=== PATIENT | male | born 1965 | race Caucasian/White ===

== ENCOUNTER 2018-02-15 20:56 | Emergency (ER) | payer OTHER, SELFPAY ==
--- NOTE | 2018-02-15 21:03 | ED.EXTPRO ---
HPI - Extremity Problem General Stated complaint: [place] FOOT INFECTION Time Seen by Provider: 02/15/18 21:03 Related Data Home Medications Medication Instructions Recorded Confirmed Bupropion Hydrochloride 150 mg PO * DOSE/FREQUENCY #0 08/02/08 (WELLBUTRIN) Cyclobenzaprine Hydrochloride mg PO Q DAY #0 08/02/08 (CYCLOBENZAPRINE HCL) FENTANYL (Fentanyl) 0 TOPICAL Q72H #0 08/02/08 GABAPENTIN (Neurontin) 600 mg PO BID #0 08/02/08 Oxycodone/Acetaminophen (Percocet 1 tab PO #0 08/02/08 5-325 MG Tablet) [CYMBALTA] 150 #0 08/02/08 Discharge Plan Departure Prescriptions: No Action Bupropion Hydrochloride (WELLBUTRIN) 150 mg PO * DOSE/FREQUENCY Qty: 0 RF: 0 Cyclobenzaprine Hydrochloride (CYCLOBENZAPRINE HCL) PO Q DAY Qty: 0 RF: 0 Oxycodone/Acetaminophen (Percocet 5-325 MG Tablet) 1 tab PO Qty: 0 RF: 0 [CYMBALTA] 150 Qty: 0 RF: 0 FENTANYL (Fentanyl) Topical Q72H Qty: 0 RF: 0 GABAPENTIN (Neurontin) 600 mg PO BID Qty: 0 RF: 0
[2018-02-15 21:06] VITALS: BP 151/90; PULSE 79; RESP 18; TEMP 36.9; O2SAT 100; BMI 34.7
--- NOTE | 2018-02-15 21:42 | ED.LOWEXIN ---
HPI - Extremity Injury (Lower) General Chief Complaint: Extremity Injury, Lower Stated Complaint: STATES FOOT INFECTION Time Seen by Provider: 02/15/18 21:03 Source: patient Mode of arrival: ambulatory Limitations: no limitations History of Present Illness HPI Narrative: Patient states that about 2 weeks ago he stepped on a short nail with his bare foot. He states that the area was a little sore, but that he did not notice major pain or redness or swelling until about a week and a half later. Patient states that he saw a his doctor and was placed on antibiotics (Augmentin) but that after a few days things do not seem to be getting better. His abx were changed to Cipro yesterday. Patient states that his ft and lower leg were purple while he was standing up earlier today, but as soon as he laid down, his foot went back to its previous color. This is what prompted his visit today. No fevers or other injuries. Patient does not feel ill. He has had minimal oozing from the wound. MD complaint: foot injury Onset (ago): week(s) (2) Injury: Left: foot Type of Injury: puncture wound Place: home Severity: mild Exacerbating factors: weight bearing Context: stepped on nail Associated symptoms: swelling Other symptoms: none Related Data Home Medications Medication Instructions Recorded Confirmed Bupropion Hydrochloride 150 mg PO * [place] DOSE/FREQUENCY #0 08/02/08 (WELLBUTRIN) Cyclobenzaprine Hydrochloride mg PO Q DAY #0 08/02/08 (CYCLOBENZAPRINE HCL) FENTANYL (Fentanyl) 0 TOPICAL Q72H #0 08/02/08 GABAPENTIN (Neurontin) 600 mg PO BID #0 08/02/08 Oxycodone/Acetaminophen (Percocet 1 tab PO #0 08/02/08 5-325 MG Tablet) [CYMBALTA] 150 #0 08/02/08 Previous Rx's Medication Instructions Recorded sulfamethoxazole-trimethoprim 1 tab PO BID #14 tab 02/16/18 Allergies Allergy/AdvReac Type Severity Reaction Status Date / Time No Known Drug Allergies Allergy Verified 02/15/18 22:46 Review of Systems Review of Systems All systems reviewed & are unremarkable except as noted in HPI and below Constitutional Denies chills, Denies fever(s), Denies lethargy and Denies weakness Eyes Denies change in vision, Denies eye discharge, Denies irritation and Denies loss of vision ENT Ears, Nose, Mouth, and Throat: Denies throat swelling Cardiovascular Denies chest pain, Denies irregular heart rhythm, Denies lightheadedness, Denies palpitations and Denies orthopnea Respiratory Denies wheezing Gastrointestinal Gastrointestinal: Denies abdominal pain, Denies change in bowel habits, Denies diarrhea, Denies nausea and Denies vomiting Musculoskeletal Denies back pain, Denies muscle weakness, Denies numbness and Denies tingling Integumentary/Breasts Denies pruritus, Denies erythema, Denies rash and Denies wounds Neurologic Denies confusion, Denies loss of vision, Denies numbness, Denies tingling and Denies weakness Psychiatric Denies anxiety, Denies confusion, Denies depression, Denies homicidal ideation and Denies suicidal ideation Endocrine Denies palpitations Hematologic/Lymphatic Denies easy bruising Allergic/Immunologic Denies urticaria, Denies throat swelling and Denies wheezing PFSH Social History Smoking Status: Never smoker Exam Initial Vital Signs Initial Vital Signs: Vital Signs Temperature 98.5 F 02/15/18 21:06 Pulse Rate 79 02/15/18 21:06 Respiratory Rate 18 02/15/18 21:06 Blood Pressure 151/90 H 02/15/18 21:06 Pulse Oximetry 100 02/15/18 21:06 Const General: cooperative and well developed Nutritional Appearance: well nourished Orientation: alert, awake, oriented x3 and not confused [facility] Head: normocephalic and atraumatic Nose: external nose normal and No nasal discharge Mouth: moist mucous membranes Eyes General: appearance normal, both eyes and all related structures Eyelids: eyelids normal Conjunctivae: conjunctivae normal Sclera: sclerae normal Pupils: PERRL EOM: EOM intact bilaterally Neck Neck: normal visual inspection, trachea midline, No lymphadenopathy, No midline deformity and No JVD Lymphatic: No lymphedema Chest Chest: normal inspection of the chest Resp Effort & Inspection: normal respiratory effort, able to speak in complete sentences, no respiratory distress and no use of accessory muscles Auscultation: clear to auscultation bilaterally, no rales, no rhonchi and no wheezes Cardio Rate: regular rate Rhythm: regular rhythm Heart Sounds: no click, no gallops, no murmurs and no rubs Pulses: normal peripheral pulses GI Inspection: non-distended Palpation: soft, no hepatosplenomegaly, No guarding, No pulsatile mass and No tender Auscultation: normal bowel sounds Back/Spine/Pelvis Back: No CVA tenderness Cervical Spine: cervical ROM normal and No pain with cervical ROM Thoracic/Lumbar Spine: thoracic and lumbar spine normal to inspection Skin General: no rashes or lesions noted, No jaundice and No petechiae Neuro General: alert, oriented x3, gait normal and no focal motor deficits Speech: speech normal Extrem General: full ROM, no pedal edema and no calf tenderness Left lower extremity: foot (Patient has a 3 cm diameter area of erythema and induration, with moderate edema on the plantar aspect of his left foot, centrally located at the base of the 2nd and 3rd toes. No expressible drainage is noted.) Details: normal capillary refill and abnormal ROM of toe (Patient can wiggle both his 2nd and 3rd toes, but this is diminished, secondary to pain and swelling. No obvious wound is noted in the area.) Psych Appearance: well kempt Mental Status: mental status grossly normal Attitude: cooperative Thought Content: normal and suicidality Judgment: judgment good Course Hospital Course: Patient remained stable throughout his stay in the emergency department. The area of redness and swelling was quite small, but given that the patient been seen twice before this in the last several days and was on his 2nd antibiotic he felt that he should a dose of IV vancomycin and an ultrasound of the area to determine whether an abscess is present. I also discussed with him that given that he did not step on a nail through issue, that probability of Pseudomonas is much lower, and as such, patient should be treated for normal skin govind. The skin as he is not allergic, the optimal antibiotic choice would be Bactrim, as neither Augmentin nor ciprofloxacin has reliable activity against MRSA. Ultrasound was done and showed a very small, diffuse area of fluid without a distinct pocket. As such, I did not feel that I and D would benefit the patient at this time. Orders Ordered: Discontinued Medications Vancomycin HCl/Dextrose (Vancomycin) 1,000 mg in 200 mls @ 200 mls/hr IV NOW ONE Stop: 02/15/18 23:01 Last Infusion: 02/15/18 23:38 Dose: 0 mls/hr Admin: 02/15/18 22:37 Dose: 200 mls/hr Vital Signs - 8 hr 02/15/18 21:06 Temperature 98.5 F Pulse Rate 79 Respiratory Rate 18 Blood Pressure 151/90 H Pulse Oximetry 100 MDM - Extremity Injury (Lower) Medical Records Attestation: I reviewed the patient's medical records. Imaging Data US soft tissue: Radiologist's impression: PROCEDURE: US EXTREMITY NONVASC LOWER LT INDICATIONS: infection, possible abscess TECHNIQUE: Real-time scanning was performed of the plantar aspect of the left foot, with image documentation. COMPARISON: None. FINDINGS: There is edema present and a region of complex heterogeneity with vascularity measuring 1.2 x 0.8 x 1.2 cm. IMPRESSION: Mild edema and probable phlegmon involving the plantar aspect of the left foot. No drainable fluid collection is seen at this time. Dictated by: Chandler Otero Rachel Interpreted: Humza Bailey MD on 02/16/2018 at 8:24 Approved by: Humza Bailey M.D. on 02/16/2018 at 11:37 [facility] Narrative Medical decision making narrative: Patient was given IV antibiotics. There is no purulent collection to drain, so I did discuss with the patient and the importance of being on appropriate antibiotics, as well as giving them time to work. Patient was advised to elevate his foot whenever possible, and to use crutches to avoid further irritation and inflammation, and till the infection begins to resolve. Patient was agreeable to this plan, and was deemed stable for discharge home. The usual indications for return of been discussed. Discharge Plan Departure Patient Disposition: Home Clinical Impression: Cellulitis of foot Discharge Date/Time: 02/16/18 00:53 Interventions: ED Discharge Assessment Last Done: 02/16/18 00:52 Instructions: DI for Cellulitis -- Adult Activity Restrictions/Additional Instructions: Your ultrasound shows a very very tiny fluid collection in your foot in the area where you had the puncture wound. This could be inflammatory fluid or pus. However, because it is so small, it is best to treat you with proper antibiotics, rather than cutting into foot at this time. If you finish your antibiotic course, and your symptoms have not improved, or if you begin to run fevers and notice that the redness is spreading after 3 days on the Bactrim, then you should be re-evaluated. Prescriptions: New sulfamethoxazole-trimethoprim 800-160 mg tablet 1 tab PO BID Qty: 14 RF: 0 No Action Bupropion Hydrochloride (WELLBUTRIN) 150 mg PO * DOSE/FREQUENCY Qty: 0 RF: 0 Cyclobenzaprine Hydrochloride (CYCLOBENZAPRINE HCL) PO Q DAY Qty: 0 RF: 0 Oxycodone/Acetaminophen (Percocet 5-325 MG Tablet) 1 tab PO Qty: 0 RF: 0 [CYMBALTA] 150 Qty: 0 RF: 0 FENTANYL (Fentanyl) Topical Q72H Qty: 0 RF: 0 GABAPENTIN (Neurontin) 600 mg PO BID Qty: 0 RF: 0 Referrals: Ewelina Aleman PA-C [Primary Care Provider] - None (Please follow up in 1 week if not better.)
--- NOTE | 2018-02-15 22:02 | DI.US.S_ITS ---
PROCEDURE: US EXTREMITY NONVASC LOWER LT INDICATIONS: infection, possible abscess TECHNIQUE: Real-time scanning was performed of the plantar aspect of the left foot, with image documentation. COMPARISON: None. FINDINGS: There is edema present and a region of complex heterogeneity with vascularity measuring 1.2 x 0.8 x 1.2 cm. IMPRESSION: Mild edema and probable phlegmon involving the plantar aspect of the left foot. No drainable fluid collection is seen at this time. Dictated by: Chandler HOANG Interpreted: Humza Bailey MD on 02/16/2018 at 8:24 Approved by: Humza Bailey M.D. on 02/16/2018 at 11:37
[2018-02-15] MEDS: VANCOMYCIN 1,000 MG/200 ML FROZ.PIGGY 200 MG IV (22:37)
[2018-02-16 00:52] VITALS: BP 136/88; PULSE 88; RESP 16; O2SAT 100
== END 2018-02-16 00:53 | disposition home or self-care (01) ==
PROVIDERS: Emergency Provider Emergency Medicine; Family Provider Physician Assistant; PCP Physician Assistant
DX: L03.116 Cellulitis of left lower limb (principal)
CPT/HCPCS: 36591; 76882; 99283; 99284; J3370

== ENCOUNTER 2021-05-04 09:23 | Observation (INO) | payer OTHER, SELFPAY ==
[2021-05-04] VITALS (20 sets, daily range): BP systolic 127–169; BP diastolic 67–87; PULSE 83–112; RESP 11–20; TEMP 36.7–39.8; O2SAT 92–99; BMI 34.9
--- NOTE | 2021-05-04 09:34 | DI.US.S_ITS ---
PROCEDURE: US ABDOMEN LIMITED INDICATIONS: RIGHT UPPER QUADRANT PAIN TECHNIQUE: Real-time focused scanning was performed of the abdomen, with image documentation. COMPARISON: None. FINDINGS: The liver demonstrates normal size. The liver demonstrates generalized mildly increased echogenicity. This decreases ultrasound sensitivity for detection of hepatic masses. The left liver is not seen on this study. The gallbladder appears distended, with a possible stone within the neck of the gallbladder. Differential diagnosis includes sludge. The gallbladder wall is not thickened, measuring 3 mm or less. No specific pericholecystic fluid is seen. The sonographic Calle sign is not assessed, as the patient is medicated. The biliary tree is not seen. The pancreas is not seen. The study is limited by overlying bowel gas. IMPRESSION: Possible stone versus sludge seen within the gallbladder, without additional sonographic signs of cholecystitis. The gallbladder is prominent in size. Scan quality limited by bowel gas. Likely mild fatty liver infiltration. Dictated by: Crescencio Young M.D. on 05/04/2021 at 9:42 Approved by: Crescencio Young M.D. on 05/04/2021 at 9:44
--- NOTE | 2021-05-04 09:35 | ED_ITS ---
HPI - Abdominal Pain General Chief Complaint: Abdominal Pain Stated Complaint: Extreme abd pain x2 days, all over Time Seen by Provider: 05/04/21 09:34 History of Present Illness HPI narrative: The patient presents with abdominal pain, onset yesterday. Pain is worse this morning. He he had emesis yesterday, none today. He has been having intermittent abdominal pain for about 2 weeks. He describes the pain is been his central abdomen. He denies chronic GI problems. The pain does not radiate to his back. He had a normal bowel movement yesterday. He is not eating this morning. He denies dysuria, hematuria or genital pain. He has no URI symptoms. He denies sore throat. He has no chest discomfort, cough or dyspnea. He is on a narcotic contract for chronic back pain. Related Data Home Medications Medication Instructions Recorded Confirmed Bupropion Hydrochloride 150 mg PO * DOSE/FREQUENCY #0 08/02/08 (WELLBUTRIN) Cyclobenzaprine Hydrochloride mg PO Q DAY #0 08/02/08 (CYCLOBENZAPRINE HCL) FENTANYL (Fentanyl) 0 TOPICAL Q72H #0 08/02/08 GABAPENTIN (Neurontin) 600 mg PO BID #0 08/02/08 Oxycodone/Acetaminophen (Percocet 1 tab PO #0 08/02/08 5-325 MG Tablet) [CYMBALTA] 150 #0 08/02/08 Previous Rx's Medication Instructions Recorded sulfamethoxazole 800 1 tab PO BID #14 tab 02/16/18 mg-trimethoprim 160 mg tablet Allergies Allergy/AdvReac Type Severity Reaction Status Date / Time No Known Drug Allergies Allergy Verified 02/15/18 22:46 Review of Systems Constitutional Constitutional: Reports as per HPI, Denies body ache(s), Denies chills, Denies fatigue, Denies fever(s), Denies headache(s) and Reports poor appetite Eyes Eyes: Denies change in vision ENT Ears, Nose, Mouth, and Throat: Denies vertigo, Denies dizziness, Denies headache(s) and Denies sore throat Cardiovascular Cardiovascular: Denies chest pain, Reports rapid heart rate and Denies dyspnea Respiratory Respiratory: Denies chest congestion, Denies cough and Denies dyspnea Gastrointestinal Gastrointestinal: Reports as per HPI Genitourinary Genitourinary: Denies dysuria, Denies testicular pain, Denies urinary hesitancy and Denies urinary urgency Musculoskeletal Musculoskeletal: Reports as per HPI and Reports back pain Integumentary/Breasts Skin/Breast: Denies lesions and Denies rash Neurologic Neurologic: Denies confusion, Denies vertigo, Denies dizziness and Denies headache(s) Psychiatric Psychiatric: Denies confusion and Denies depression Endocrine Endocrine: Denies fatigue Hematologic/Lymphatic On Anticoagulants: No Patient History Medical History (Updated 05/04/21 @ 14:20 by Fernando Steiner MD) Chronic back pain Surgical History (Updated 05/04/21 @ 14:13 by Fernando Steiner MD) No significant past surgical history Social History Smoking Status: Never smoker Smoking Status: Never smoker alcohol intake frequency: 0-2 drinks per day Substance Use Type: does not use Exam Initial Vital Signs Initial Vital Signs: Vital Signs Temperature 98.1 F 05/04/21 09:25 Pulse Rate 97 H 05/04/21 09:25 Respiratory Rate 17 05/04/21 09:25 Blood Pressure 169/87 H 05/04/21 09:25 Pulse Oximetry 99 05/04/21 09:25 Const General: cooperative, in distress and No ill appearing HENMT Head: normal to inspection, normocephalic and atraumatic Mouth: oral mucosae normal Eyes General: appearance normal, both eyes and all related structures Conjunctivae: conjunctivae normal Sclera: sclerae normal EOM: EOM intact bilaterally Neck Neck: normal visual inspection Chest Chest: normal inspection of the chest Resp Effort & Inspection: normal respiratory effort Auscultation: clear to auscultation bilaterally Cardio Palpation: normal PMI Rate: regular rate Rhythm: regular rhythm Heart Sounds: S1 normal, S2 normal and no murmurs GI Inspection: normal to inspection Palpation: soft, guarding (Right upper quadrant.) and tender (Right upper quadrant.) Auscultation: normal bowel sounds Back/Spine/Pelvis Back: No CVA tenderness Skin General: no rashes or lesions noted Neuro General: patient alert, patient awake, patient oriented x3 and no focal motor deficits Extrem General: normal to inspection, full ROM and no pedal edema Psych Mental Status: mental status grossly normal Course Course Course Narrative: The initial assessment included ultrasound of the right upper quadrant. There was no clear cholecystitis on ultrasound, LFTs are normal. He does have a mildly elevated WBC count. He also had hematuria, a noncontrast CT was obtained. I talked to the radiologist, the CT was suggestive of acute cholecystitis. Dr. Watters, surgery was consulted. She felt that without the elevated LFTs, he was deserving of additional evaluation. The studies are not absolutely clear. Hospitalist,Dr Hdz, was consulted. He has admitted the patient. Surgery did recommend a HIDA scan. Orders Ordered: ED Orders 05/04/21 09:30 Complete Blood Count AUTO DIFF Stat Comprehensive Metabolic Panel Stat Lipase Stat 05/04/21 09:34 US abdomen limited Stat 05/04/21 09:37 EKG-12 Lead Stat 05/04/21 10:35 COVID19 - ADMIT (STYLE ADVISOR swab/PCR) Stat 05/04/21 11:15 Urinalysis and Microscopic Stat 05/04/21 11:53 CT kidney ureter bladder (KUB) Stat Discontinued Medications Hydromorphone HCl (Hydromorphone 1 Mg Inj) 1 mg IV NOW ONE Stop: 05/04/21 09:35 Last Admin: 05/04/21 09:41 Dose: 1 mg Documented by: ARUN Sodium Chloride (Normal Saline 0.9%) 1,000 mls @ 250 mls/hr IV BOLUS ONE Stop: 05/04/21 13:36 Last Infusion: 05/04/21 12:24 Dose: 0 mls/hr Documented by: Admin: 05/04/21 09:41 Dose: 250 mls/hr Documented by: ARUN Ketorolac Tromethamine (Ketorolac 30 Mg/Ml Vial) 15 mg IV NOW ONE Stop: 05/04/21 11:55 Last Admin: 05/04/21 12:16 Dose: 15 mg Documented by: KAYA Vital Signs Vital signs: Vital Signs - 8 hr 05/04/21 09:25 05/04/21 09:31 05/04/21 10:00 Temperature 98.1 F Pulse Rate 97 H 98 H 87 Respiratory Rate 17 19 12 Blood Pressure 169/87 H Pulse Oximetry 99 97 93 05/04/21 10:30 05/04/21 10:37 05/04/21 11:00 Temperature Pulse Rate 87 89 85 Respiratory Rate 14 14 14 Blood Pressure 145/79 H 155/72 H Pulse Oximetry 96 96 94 05/04/21 11:30 05/04/21 12:00 05/04/21 12:30 Temperature Pulse Rate 83 84 85 Respiratory Rate 14 11 L 12 Blood Pressure 158/76 H 155/74 H Pulse Oximetry 95 95 95 05/04/21 13:00 Temperature Pulse Rate 84 Respiratory Rate 12 Blood Pressure Pulse Oximetry 94 MDM - Abdominal Pain Lab Data Result diagrams: 05/04/21 09:30 05/04/21 09:30 Labs: Lab Results 05/04/21 05/04/21 05/04/21 Range/Units 09:30 09:30 10:35 WBC 14.5 H (4.5-11.0) X10^3/uL RBC 5.01 (4.5-5.9) X10^6/uL Hgb 14.2 (13.5-17.5) g/dL Hct 42.8 (41-53) % MCV 85.4 (80-100) fL MCH 28.3 (26-34) PG MCHC 33.2 (30-36) % RDW 12.5 (11.6-14.8) % Plt Count 264 (150-400) X10^3/uL Neut % (Auto) 79.9 H (50-75) % Lymph % (Auto) 10.1 L (25-40) % [place] % (Auto) 9.6 (3-14) % Eos % (Auto) 0.2 L (2-4) % Baso % (Auto) 0.2 (0-2) % Neut # (Auto) 49410 H (8837-7719) /uL Lymph # (Auto) 1500 (2933-3360) /uL [place] # (Auto) 1400 H (0-900) /uL Eos # (Auto) 0 (0-450) /uL Baso # (Auto) 0 (0-100) /uL Sodium 137 (137-145) mmol/L Potassium 4.4 (3.4-5.1) mmol/L Chloride 97 L (98-107) mmol/L Carbon Dioxide 33 H (22-32) mmol/L BUN 14 (9-20) mg/dL Creatinine 0.93 (0.66-1.25) mg/dL Estimated GFR > 60.0 (>60) mL/min BUN/Creatinine Ratio 15.1 (6-22) Glucose 133 H (70-100) mg/dL Calcium 10.2 (8.4-10.2) mg/dL Total Bilirubin 0.9 (0.2-1.3) mg/dL AST 26 (17-59) IU/L ALT 21 (<50) IU/L Alkaline Phosphatase 57 (38-126) U/L Total Protein 7.9 (6.3-8.2) g/dL Albumin 4.7 (3.5-5.0) g/dL Globulin 3.2 (1.7-4.1) g/dL Albumin/Globulin Ratio 1.5 (1.0-2.8) Lipase 33 (23-300) U/L Urine Color Urine Appearance Urine pH (4.5-8.0) Ur Specific [place] (1.000-1.035) Urine Protein (Negative) Urine Glucose (UA) (Negative) g/dL Urine Ketones (NEGATIVE) Urine Occult Blood (Negative) Urine Nitrate (Negative) Urine Bilirubin (NEGATIVE) Urine Urobilinogen (0.2) E.U./dL Ur Leukocyte Esterase (NEGATIVE) Urine RBC (0-5/HPF) Urine WBC (0-5/HPF) Amorphous Sediment Urine Bacteria (None) Ur Culture Indicated? SARS-CoV-2 (PCR) Negative (Negative) 05/04/21 Range/Units 11:15 WBC (4.5-11.0) X10^3/uL RBC (4.5-5.9) X10^6/uL Hgb (13.5-17.5) g/dL Hct (41-53) % MCV (80-100) fL MCH (26-34) PG MCHC (30-36) % RDW (11.6-14.8) % Plt Count (150-400) X10^3/uL Neut % (Auto) (50-75) % Lymph % (Auto) (25-40) % [place] % (Auto) (3-14) % Eos % (Auto) (2-4) % Baso % (Auto) (0-2) % Neut # (Auto) (3768-8914) /uL Lymph # (Auto) (1937-6529) /uL [place] # (Auto) (0-900) /uL Eos # (Auto) (0-450) /uL Baso # (Auto) (0-100) /uL Sodium (137-145) mmol/L Potassium (3.4-5.1) mmol/L Chloride (98-107) mmol/L Carbon Dioxide (22-32) mmol/L BUN (9-20) mg/dL Creatinine (0.66-1.25) mg/dL Estimated GFR (>60) mL/min BUN/Creatinine Ratio (6-22) Glucose (70-100) mg/dL Calcium (8.4-10.2) mg/dL Total Bilirubin (0.2-1.3) mg/dL AST (17-59) IU/L ALT (<50) IU/L Alkaline Phosphatase (38-126) U/L Total Protein (6.3-8.2) g/dL Albumin (3.5-5.0) g/dL Globulin (1.7-4.1) g/dL Albumin/Globulin Ratio (1.0-2.8) Lipase (23-300) U/L Urine Color Yellow Urine Appearance Sl cloudy Urine pH 8.5 H (4.5-8.0) Ur Specific [place] 1.015 (1.000-1.035) Urine Protein Trace H (Negative) Urine Glucose (UA) Trace H (Negative) g/dL Urine Ketones Trace H (NEGATIVE) Urine Occult Blood 3+ H (Negative) Urine Nitrate Negative (Negative) Urine Bilirubin Negative (NEGATIVE) Urine Urobilinogen 1.0 (0.2) E.U./dL Ur Leukocyte Esterase Negative (NEGATIVE) Urine RBC 10-30/hpf H (0-5/HPF) Urine WBC None seen (0-5/HPF) Amorphous Sediment 1+ Urine Bacteria None seen (None) Ur Culture Indicated? Cult not indicated SARS-CoV-2 (PCR) (Negative) Imaging Data US - abdomen: Radiologist's Impression: Launch?[address] [address] Ultrasound Report Signed Patient: Nik Alvarez MR#: [id number] : 1965 Acct:[id number] Age/Sex: 55 / M Date of Service: 05/04/21 Loc: ED Accession Number: [id number] ?? Procedure: US abdomen limited Ordering Provider: Fernando Steiner MD PROCEDURE: US ABDOMEN LIMITED ? INDICATIONS:? RIGHT UPPER QUADRANT PAIN ? TECHNIQUE:? Real-time focused scanning was performed of the abdomen, with image documentation.? ? COMPARISON:? None. ? FINDINGS:? The liver demonstrates normal size. The liver demonstrates generalized mildly increased echogenicity. This decreases ultrasound sensitivity for detection of hepatic masses.? The left liver is not seen on this study. ? The gallbladder appears distended, with a possible stone within the neck of the gallbladder.? Differential diagnosis includes sludge.? The gallbladder wall is not thickened, measuring 3 mm or less.? No specific pericholecystic fluid is seen.? The sonographic Calle sign is not assessed, as the patient is medicated. ? The biliary tree is not seen. ? The pancreas is not seen. ? The study is limited by overlying bowel gas. ? ? IMPRESSION:? Possible stone versus sludge seen within the gallbladder, without additional sonographic signs of cholecystitis.? The gallbladder is prominent in size. ? Scan quality limited by bowel gas. ? Likely mild fatty liver infiltration. ? Dictated by: Crescencio Young M.D. on 05/04/2021 at 9:42 ? ? Approved by: Crescencio Young M.D. on 05/04/2021 at 9:44 ? Discharge Plan Departure Patient Disposition: Admitted as Observation Clinical Impression: Abdominal pain, Chronic back pain Admit Date/Time: 05/04/21 13:18 Admit Provider: Johnathan Hdz
[2021-05-04] MEDS: HYDROMORPHONE 1 MG INJ IV ×4 (09:41→21:38)
[2021-05-04] MEDS: SODIUM CHLORIDE 0.9% 1,000 ML 250 ML IV (09:41)
[2021-05-04 09:44] LABS: Add Manual Diff / Slide Review NO; Basophils Absolute Auto 0 /uL (0-100); Basophils Percent Auto 0.2 % (0-2); Eosinophils Absolute Auto 0 /uL (0-450); Eosinophils Percent Auto 0.2 % (2-4); Hematocrit 42.8 % (41-53); Hemoglobin 14.2 g/dL (13.5-17.5); Lymphocytes Absolute Auto 1500 /uL (1100-4500); Lymphocytes Percent Auto 10.1 % (25-40); Mean Corpuscular HGB Conc 33.2 % (30-36); Mean Corpuscular Hemoglobin 28.3 PG (26-34); Mean Corpuscular Volume 85.4 fL (80-100); Monocytes Absolute Auto 1400 /uL (0-900); Monocytes Percent Auto 9.6 % (3-14); Neutrophils Absolute Auto 11500 /uL (1500-7000); Neutrophils Percent Auto 79.9 % (50-75); Platelet Count 264 X10^3/uL (150-400); Red Blood Cell Count 5.01 X10^6/uL (4.5-5.9); Red Cell Distribution Width 12.5 % (11.6-14.8); White Blood Cell Count 14.5 X10^3/uL (4.5-11.0)
[2021-05-04 09:50] LABS: Alanine Aminotransferase 21 IU/L (<50); Albumin 4.7 g/dL (3.5-5.0); Albumin Globulin Ratio 1.5 (1.0-2.8); Alkaline Phosphatase 57 U/L (38-126); Aspartate Aminotransferase 26 IU/L (17-59); BUN Creatinine Ratio 15.1 (6-22); Bilirubin Total 0.9 mg/dL (0.2-1.3); Blood Urea Nitrogen 14 mg/dL (9-20); Calcium 10.2 mg/dL (8.4-10.2); Carbon Dioxide 33 mmol/L (22-32); Chloride 97 mmol/L (98-107); Estimated Glomerular Filt Rate > 60.0 mL/min (>60); Globulin 3.2 g/dL (1.7-4.1); Glucose 133 mg/dL (70-100); HEMOLYSIS < 15 (0-50); Lipase 33 U/L (23-300); Potassium 4.4 mmol/L (3.4-5.1); Sodium 137 mmol/L (137-145); Total Protein 7.9 g/dL (6.3-8.2)
[2021-05-04 11:37] LABS: Appearance Urine UA SL CLOUDY; Bilirubin Urine UA NEGATIVE (NEGATIVE); Color Urine UA YELLOW; Glucose Urine UA TRACE g/dL (Negative); Ketones Urine UA TRACE (NEGATIVE); Leukocyte Esterase Urine UA NEGATIVE (NEGATIVE); Nitrite Urine UA NEGATIVE (Negative); Occult Blood Urine UA 3+ (Negative); Protein Urine UA TRACE (Negative); Specific Gravity Urine UA 1.015 (1.000-1.035); pH Urine UA 8.5 (4.5-8.0)
[2021-05-04 11:43] LABS: Bacteria Urine None Seen; RBC Urine 10-30/HPF (0-5/HPF); WBC Urine None Seen (0-5/HPF)
[2021-05-04 11:44] LABS: Amorphous Sediment Urine 1+; Culture Indicated Urine Cult Not Indicated
--- NOTE | 2021-05-04 11:53 | DI.CT.S_ITS ---
PROCEDURE: CT KIDNEY URETER BLADDER (KUB) INDICATIONS: Abdominal pain. Hematuria. TECHNIQUE: Axial sections were acquired from the lung bases to the pubic symphysis. Coronal and sagittal reformats were performed. For radiation dose reduction, the following was used: automated exposure control, adjustment of mA and/or kV according to patient size. COMPARISON: [facility], US ABDOMEN LIMITED, 05/04/2021, 10:19. FINDINGS: Image quality: Excellent. Lung bases: Minimal atelectasis at the lung bases. No pleural effusion. Heart: No significant findings. URINARY: Right Kidney: No stones or hydronephrosis. Right Ureter: No hydroureter. Left Kidney: No stones or hydronephrosis. Possible small exophytic cyst at the inferior pole of the left kidney. Left Ureter: No hydroureter. Bladder: Normal wall thickness. No stones. ABDOMEN: Liver: Hepatic steatosis. Gallbladder: Markedly distended measuring 5.6 cm in diameter. There is gallbladder wall thickening and suspected pericholecystic fluid. There is increased density near the gallbladder neck. Biliary ducts: No dilatation identified. Suspect trace fluid at the tricia hepatis. Pancreas: Atrophic appearing. No loculated peripancreatic fluid collection. Spleen: Unremarkable. Adrenal Glands: Unremarkable. Stomach and Bowel: Stomach, small bowel loops, and colon are unremarkable. The appendix is not dilated. Peritoneum: No abnormal intraperitoneal fluid. No free air. Ventral Wall: No hernia. Abdominal Nodes: No enlarged retroperitoneal or mesenteric lymph nodes. Vessels: Aorta and inferior vena cava are normal in size. PELVIS: Pelvic Organs: Unremarkable. Pelvic Nodes: Unremarkable. Miscellaneous: No inguinal hernias are seen. Bones: Mild degenerative change. IMPRESSION: 1. Distended gallbladder with suspected pericholecystic fluid. Increased density near the gallbladder neck could represent a noncalcified gallstone or tumefactive sludge. Findings suspicious for acute cholecystitis. HIDA scan could be performed for confirmation. CT abdomen with IV contrast could also be considered. 2. Hepatic steatosis. 3. No kidney stones. No hydronephrosis Comment: Findings were discussed with Fernando Steiner at the time of dictation. Dictated by: Gurmeet Joaquin M.D. on 05/04/2021 at 12:27 Approved by: Gurmeet Joaquin M.D. on 05/04/2021 at 12:39
[2021-05-04] MEDS: KETOROLAC 30 MG/ML VIAL 15 MG IV (12:16)
[2021-05-04 12:19] LABS: COVID19 - ADMIT (NP swab/PCR) Negative (Negative)
--- NOTE | 2021-05-04 14:21 | PM.HP.1 ---
History of Present Illness History of Present Illness Date Patient Seen: 05/04/21 Time Patient Seen: 14:00 Chief complaint: Extreme abd pain x2 days, all over Narrative: Mr. Bundy is a 55M with PMH of chronic back pain who presents with abdominal pain. He says it started yesterday. It worsened throughout the day, he had an episode of vomiting. He first started having abdominal pain two weeks ago, but it resolved without further treatment. Last bowel movement was yesterday. He has no appetite. His abdominal pain is throughout the entire abdomen but mostly on the right side. He has no urinary symptoms. No cough, shortness of breath, or chest pain. In the ED workup was done, vitals were notable for tachycardia in the 90s-100s. Labs notable for WBC 14.5, hgb 14.2, plts 264. Creatinine 0.93. COVID negative. Urine showed no leuk esterase, no WBC, no bacteria. Abdominal ultrasound showed prominent size with possible stone in gallbladder neck. CT abdomen showed distended gallbladder with suspected pericholecystic fluid with density near gallbladder neck read as suspicious for acute cholecystitis. Patient was admitted for further treatment. Patient History Medical History Chronic back pain Surgical History No significant past surgical history Family & Social History Social History: household members spouse Prior Living Arrangements House Safety & Behavioral: Feels Safe in Current Yes Environment Been Physically Hurt or No Threatened By a Person Suicidal Ideation Description None Suicide Plan Description No Plan Tobacco & Substance use: Tobacco type smokeless tobacco Smoking Status Former smoker alcohol intake never alcohol intake frequency 0-2 drinks per day Substance Use Type does not use Meds Home Medications and Allergies Home Medications Medication Instructions Recorded Confirmed Type metoprolol succinate 25 mg 25 mg PO DAILY 05/04/21 05/04/21 History tablet,extended release 24 hr morphine 15 mg tablet,extended 15 mg PO Q12H 05/04/21 05/04/21 History release oxycodone 10 mg tablet 10 mg PO BID 05/04/21 05/04/21 History piroxicam 10 mg capsule 10 mg PO DAILY 05/04/21 05/04/21 History rizatriptan 10 mg tablet 10 mg PO DAILY 05/04/21 05/04/21 History Allergies Allergy/AdvReac Type Severity Reaction Status Date / Time No Known Drug Allergies Allergy Verified 02/15/18 22:46 Review of Systems Review of Systems Narrative: 14 systems reviewed and negative aside from what is noted in HPI Exam Vital Signs (past 8 hours): - 05/04/21 12:30 05/04/21 13:00 05/04/21 13:30 Temperature Pulse Rate 85 84 91 H Respiratory Rate 12 12 14 Blood Pressure Pulse Oximetry 95 94 95 05/04/21 13:55 05/04/21 14:34 05/04/21 18:34 Temperature 99.9 F H 102.3 F H Pulse Rate 84 89 112 H Respiratory Rate 14 12 20 Blood Pressure 134/67 141/76 H 127/77 Pulse Oximetry 96 99 92 05/04/21 19:32 05/04/21 20:08 Temperature 103.7 F H 103.7 F H Pulse Rate 97 H Respiratory Rate 18 Blood Pressure 148/69 H Pulse Oximetry 93 Oxygen Delivery Method Room Air Oxygen Flow Rate 0 Narrative Exam Narrative: GEN: mild distress from pain HEENT: PERRL, moist mucous membranes NECK: trachea midline, no JVD CV: tachycardic with no murmurs PULM: clear bilaterally, no wheezes, rhonchi, rales ABD: soft, significantly tender in the right upper quadrant, no rebound/guarding EXT: warm and well perfused with no edema NEURO: awake and alert, no focal deficits PSYCH: pleasant, cooperative Objective Labs Result Diagrams: 05/04/21 09:30 05/04/21 09:30 Labs: Laboratory Results - last 24 hr 05/04/21 05/04/21 05/04/21 09:30 09:30 10:35 WBC 14.5 H RBC 5.01 Hgb 14.2 Hct 42.8 MCV 85.4 MCH 28.3 MCHC 33.2 RDW 12.5 Plt Count 264 Neut % (Auto) 79.9 H Lymph % (Auto) 10.1 L [place] % (Auto) 9.6 Eos % (Auto) 0.2 L Baso % (Auto) 0.2 Neut # (Auto) 58867 H Lymph # (Auto) 1500 [place] # (Auto) 1400 H Eos # (Auto) 0 Baso # (Auto) 0 Sodium 137 Potassium 4.4 Chloride 97 L Carbon Dioxide 33 H BUN 14 Creatinine 0.93 Estimated GFR > 60.0 BUN/Creatinine Ratio 15.1 Glucose 133 H Calcium 10.2 Total Bilirubin 0.9 AST 26 ALT 21 Alkaline Phosphatase 57 Total Protein 7.9 Albumin 4.7 Globulin 3.2 Albumin/Globulin Ratio 1.5 Lipase 33 Urine Color Urine Appearance Urine pH Ur Specific [place] Urine Protein Urine Glucose (UA) Urine Ketones Urine Occult Blood Urine Nitrate Urine Bilirubin Urine Urobilinogen Ur Leukocyte Esterase Urine RBC Urine WBC Amorphous Sediment Urine Bacteria Ur Culture Indicated? SARS-CoV-2 (PCR) Negative 05/04/21 11:15 WBC RBC Hgb Hct MCV MCH MCHC RDW Plt Count Neut % (Auto) Lymph % (Auto) [place] % (Auto) Eos % (Auto) Baso % (Auto) Neut # (Auto) Lymph # (Auto) [place] # (Auto) Eos # (Auto) Baso # (Auto) Sodium Potassium Chloride Carbon Dioxide BUN Creatinine Estimated GFR BUN/Creatinine Ratio Glucose Calcium Total Bilirubin AST ALT Alkaline Phosphatase Total Protein Albumin Globulin Albumin/Globulin Ratio Lipase Urine Color Yellow Urine Appearance Sl cloudy Urine pH 8.5 H Ur Specific [place] 1.015 Urine Protein Trace H Urine Glucose (UA) Trace H Urine Ketones Trace H Urine Occult Blood 3+ H Urine Nitrate Negative Urine Bilirubin Negative Urine Urobilinogen 1.0 Ur Leukocyte Esterase Negative Urine RBC 10-30/hpf H Urine WBC None seen Amorphous Sediment 1+ Urine Bacteria None seen Ur Culture Indicated? Cult not indicated SARS-CoV-2 (PCR) Assessment & Plan Assessment & Plan narrative: Mr. Alvarez is a 55M with H chronic pain who presents with acute abdominal pain. 1. Abdominal pain, acute -suspect acute cholecystitis based on findings of fever, elevated WBC, RUQ pain, and findings on CT scan -did discuss with Dr. Watters my suspicion of infected gallbladder, she will consult -did spike fever so zosyn will be started, blood cultures ordered -surgery recommended HIDA scan, which is ordered, unclear if can be done -for tomorrow repeat abdominal ultrasound, recheck LFTs per surgery recs 2. Migraine -ordered for patient's home medications CODE: Full Proxy: Alexa Alvarez, Time Spent With Patient Critical Care time: I spent a total of [] minutes of critical care time on this patient's care today; this time is exclusive of procedural time. Quality VTE Deep Vein Thrombosis/Pulmonary Embolism Present on Admission: No MIPS - Admit I confirm the patient?s Advance Care Plan is present, Code status is documented, Surrogate decision maker is in patient?s record [If Yes, STOP here]: Yes
[2021-05-04] MEDS: SODIUM CHLORIDE 0.9% 1,000 ML 150 ML IV ×2 (14:55→21:46)
--- NOTE | 2021-05-04 16:07 | PC.NURSE ---
Patient was admitted by float RN to room 212. Upon this RN's assessment patient is laying in bed with eyes closed trying to rest, reports pain is improving after dilaudid was given. Oriented to room and call light, with call light placed with in reach. Strict NPO ordered and patient aware. at bedside. Continue to follow.
--- NOTE | 2021-05-04 16:10 | PM.CALLCOV.1 ---
Call Coverage Note Note Date of Patient Contact: 05/04/21 Narrative of Care Provided: Called from ED. 2 weeks of abdominal pain, tenderness on exam in the RUQ. US show normal GB wall and no pericholecystic fluid. LFT's are normal. WBC 14.5. CT scan to my read does show a stone in the neck of GB, no pericholecystic fluid and no wall thickened. + constipation. Plan: HIDA no available for >24 hours. Admitted to medical team. and repeat LFT's in am. Bowel regimen for constipation. Surgery will see in am.
[2021-05-04] MEDS: ONDANSETRON 4 MG/2 ML INJ IV (18:34)
[2021-05-04] MEDS: MEROPENEM 2 GM in SODIUM CHLORIDE 0.9% 100 ML 200 ML IV (19:43)
--- NOTE | 2021-05-04 20:01 | PC.NURSE ---
End of shift summary: Alerted by HOSPITALITY TEAM MEMBER that patient c/o severe migraine starting. Fever noted, and patient holding his heading c/o of severe migraine pain and nausea. MEdicated with IV dilaudid and zofran as ordered prn. Notified Dr. Hdz and new orders received and initiated. Ice packs in place to head and neck. IV fluids continued as ordered. Per Dr. Hdz patient is ok to have sips of water with medications but to remain NPO. Patient's at bedside. Call light within reach. Evening shift assuming care and plans to medicate with tylenol once verified.
[2021-05-04] MEDS: ACETAMINOPHEN 325 MG TABLET 650 MG PO (20:08)
[2021-05-05] VITALS (8 sets, daily range): BP systolic 134–167; BP diastolic 70–87; PULSE 88–105; RESP 16–20; TEMP 36.6–37.9; O2SAT 92–97
[2021-05-05] MEDS: HYDROMORPHONE 1 MG INJ IV ×8 (02:38→23:20)
[2021-05-05] MEDS: MEROPENEM 2 GM in SODIUM CHLORIDE 0.9% 100 ML 200 ML IV ×3 (02:53→20:00)
[2021-05-05] MEDS: ACETAMINOPHEN 325 MG TABLET 650 MG PO ×2 (03:10→08:35)
[2021-05-05] MEDS: SODIUM CHLORIDE 0.9% 1,000 ML 150 ML IV (05:43)
[2021-05-05 06:08] LABS: Add Manual Diff / Slide Review NO; Basophils Absolute Auto 100 /uL (0-100); Basophils Percent Auto 0.5 % (0-2); Eosinophils Absolute Auto 0 /uL (0-450); Hematocrit 39.7 % (41-53); Hemoglobin 12.7 g/dL (13.5-17.5); Lymphocytes Absolute Auto 1000 /uL (1100-4500); Lymphocytes Percent Auto 5.9 % (25-40); Mean Corpuscular HGB Conc 32.1 % (30-36); Mean Corpuscular Hemoglobin 27.8 PG (26-34); Mean Corpuscular Volume 86.5 fL (80-100); Monocytes Absolute Auto 1500 /uL (0-900); Monocytes Percent Auto 8.6 % (3-14); Neutrophils Absolute Auto 14500 /uL (1500-7000); Platelet Count 215 X10^3/uL (150-400); Red Blood Cell Count 4.59 X10^6/uL (4.5-5.9); Red Cell Distribution Width 12.8 % (11.6-14.8)
[2021-05-05 06:13] LABS: BUN Creatinine Ratio 16.5 (6-22); Blood Urea Nitrogen 13 mg/dL (9-20); Calcium 8.9 mg/dL (8.4-10.2); Carbon Dioxide 27 mmol/L (22-32); Chloride 104 mmol/L (98-107); Estimated Glomerular Filt Rate > 60.0 mL/min (>60); Glucose 106 mg/dL (70-100); HEMOLYSIS < 15 (0-50); Magnesium 1.7 mg/dL (1.6-2.3); Potassium 3.7 mmol/L (3.4-5.1); Sodium 138 mmol/L (137-145)
[2021-05-05 06:29] LABS: Procalcitonin 2.53 ng/mL (<0.5)
--- NOTE | 2021-05-05 08:00 | DI.US.S_ITS ---
PROCEDURE: US ABDOMEN LIMITED INDICATIONS: EVALUATE FOR GALLBLADDER CHANGES TECHNIQUE: Real-time focused scanning was performed of the abdomen, with image documentation. COMPARISON: [facility], CT, CT KIDNEY URETER BLADDER (KUB), 05/04/2021, 12:02. [facility], US, US ABDOMEN LIMITED, 05/04/2021, 10:19. FINDINGS: The study is again limited by bowel gas. Furthermore the patient is unable to cooperate with standard positioning. The gallbladder is again seen to be prominent in size. Sludge is again seen within the gallbladder and there is pericholecystic fluid. No shadowing gallstones are seen. The gallbladder wall does not appear thickened and a sonographic Calle sign is negative. The liver is enlarged and demonstrates a mildly heterogeneous appearance. The biliary tree and the pancreas are not well seen. IMPRESSION: Gallbladder similar to prior, with enlarged size and sludge within the gallbladder. Mild pericholecystic fluid is seen. No gallbladder wall thickening is seen and the sonographic Calle sign is regarded to be negative. Technically limited study. Dictated by: Crescencio Young M.D. on 05/05/2021 at 9:45 Approved by: Crescencio Young M.D. on 05/05/2021 at 9:49
[2021-05-05] MEDS: NAPROXEN 250 MG TABLET PO ×2 (08:35→20:09)
[2021-05-05] MEDS: ENOXAPARIN 40 MG/0.4 ML SYRINGE SUBCUT (08:38)
[2021-05-05 11:30] LABS: Alanine Aminotransferase 19 IU/L (<50); Albumin Globulin Ratio 1.5 (1.0-2.8); Alkaline Phosphatase 50 U/L (38-126); Aspartate Aminotransferase 23 IU/L (17-59); Bilirubin Total 0.9 mg/dL (0.2-1.3); Bilirubin Unconjugated 0.5 mg/dL (0.0-1.1); Globulin 2.7 g/dL (1.7-4.1); HEMOLYSIS < 15 (0-50); Total Protein 6.7 g/dL (6.3-8.2)
--- NOTE | 2021-05-05 12:14 | DI.NM.S_ITS ---
PROCEDURE: NM HIDA NO EJECTION FRACTION RADIOPHARMACEUTICAL: 5.5 mCi Tc-99m mebrofenin IV. INDICATIONS: cholecystitis TECHNIQUE: Following intravenous administration of Tc-99m mebrofenin, sequential anterior abdominal images were obtained through at least 60 minutes. COMPARISON: [facility], US, US ABDOMEN LIMITED, 05/04/2021, 10:19. [facility], US, US ABDOMEN LIMITED, 05/05/2021, 9:07. FINDINGS: There is normal tracer uptake and excretion by the liver. There is normal visualization of intrahepatic ducts, and prompt excretion into the common duct well before 30 minutes. There is normal passage of radiotracer into the duodenum before 30 minutes. Despite observation out to 90 minutes, there is no visualization of cystic duct or gallbladder. IMPRESSION: 1. There is nonvisualization of the gallbladder which in the setting of hospitalized patient can be nonspecific. Differential diagnosis includes maximal distension of the gallbladder, cholestasis, or cystic duct obstruction indicating cholecystitis. Consider repeat scan with pretreatment of the gallbladder with CCK or other means to empty the gallbladder. Dictated by: Sheryl Grover M.D. on 05/06/2021 at 16:00 Approved by: Sheryl Grover M.D. on 05/06/2021 at 16:04
[2021-05-05] MEDS: MAGNESIUM HYDROXIDE 30 ML UDC PO (13:13)
[2021-05-05] MEDS: MAGNESIUM SULFATE 2 GM/50 ML PIGGYBACK IV (13:16)
[2021-05-05 13:38] LABS: Alanine Aminotransferase 15 IU/L (<50); Albumin 3.4 g/dL (3.5-5.0); Albumin Globulin Ratio 1.4 (1.0-2.8); Alkaline Phosphatase 51 U/L (38-126); Aspartate Aminotransferase 21 IU/L (17-59); BUN Creatinine Ratio 20.3 (6-22); Bilirubin Total 0.9 mg/dL (0.2-1.3); Blood Urea Nitrogen 15 mg/dL (9-20); Calcium 8.7 mg/dL (8.4-10.2); Carbon Dioxide 26 mmol/L (22-32); Chloride 103 mmol/L (98-107); Estimated Glomerular Filt Rate > 60.0 mL/min (>60); Globulin 2.5 g/dL (1.7-4.1); Glucose 93 mg/dL (70-100); HEMOLYSIS < 15 (0-50); Sodium 138 mmol/L (137-145); Total Protein 5.9 g/dL (6.3-8.2)
--- NOTE | 2021-05-05 15:19 | PM.CN ---
History of Present Illness Consult details Date Patient Seen: 05/05/21 Time Patient Seen: 15:19 Chief complaint: Extreme abd pain x2 days, all over Reason for consult: Possible acute cholecystitis Requesting provider: Rossy Oakes Narrative: Patient has abdominal pain for 2 weeks. Some worsening over the course of the day. This brought into the emergency room with what was described as generalized abdominal pain. No recent bowel movements on the last day or so. Evaluation in the ED was consistent with a right upper quadrant tenderness. Workup for acute cholecystitis was pursued. Patient is anorexic. Has pain that is predominantly right-sided but felt throughout the abdomen. CT scan reviewed personally there is evidence of constipation, I do not see the gallbladder is a source of issues. But there is edema in the right upper abdomen. Ultrasound last evening repeated today continues to show sludge in the gallbladder. Normal gallbladder wall thickness. And today a negative Calle sign. Liver function tests remain normal. He does however continue to have fevers, and his white count has elevated to 17,000. Meds Home Medications and Allergies Home Medications Medication Instructions Recorded Confirmed Type metoprolol succinate 25 mg 25 mg PO DAILY 05/04/21 05/04/21 History tablet,extended release 24 hr morphine 15 mg tablet,extended 15 mg PO Q12H 05/04/21 05/04/21 History release oxycodone 10 mg tablet 10 mg PO BID 05/04/21 05/04/21 History piroxicam 10 mg capsule 10 mg PO DAILY 05/04/21 05/04/21 History rizatriptan 10 mg tablet 10 mg PO DAILY 05/04/21 05/04/21 History Allergies Allergy/AdvReac Type Severity Reaction Status Date / Time No Known Drug Allergies Allergy Verified 02/15/18 22:46 Review of Systems Review of Systems ROS: Yes All systems reviewed with the patient and are negative except as otherwise documented Exam Vital Signs (past 8 hours): - 05/05/21 10:00 05/05/21 14:05 Temperature 100.3 F H 99.2 F Pulse Rate 92 H 88 Respiratory Rate 16 16 Blood Pressure 134/72 167/87 H Pulse Oximetry 93 97 Oxygen Delivery Method Room Air Oxygen Flow Rate 0 Const General: cooperative and acute distress Nutritional Appearance: overweight Orientation: alert and awake [facility] Head: normocephalic and atraumatic Ears: hearing grossly normal bilaterally Eyes General: appearance normal, both eyes and all related structures Sclera: sclerae normal Neck Neck: trachea midline Chest Chest: normal inspection of the chest Resp Effort & Inspection: normal respiratory effort and able to speak in complete sentences Cardio Rate: regular rate Rhythm: regular rhythm GI Other: Generalized tenderness. No acute abdomen. Abdomen is soft Skin General: turgor normal Neuro General: patient alert and patient oriented x3 Cognition: normal cognition Speech: speech normal Extrem General: no pedal edema Psych Appearance: grossly normal Mental Status: mental status grossly normal Affect: normal affect Judgment: judgment good Objective Labs Result Diagrams: 05/05/21 05:50 05/05/21 12:05 Labs: Laboratory Results - last 24 hr 05/05/21 05/05/21 05/05/21 05:50 05:50 05:50 WBC 17.0 H RBC 4.59 Hgb 12.7 L Hct 39.7 L MCV 86.5 MCH 27.8 MCHC 32.1 RDW 12.8 Plt Count 215 Neut % (Auto) 85.0 H Lymph % (Auto) 5.9 L [place] % (Auto) 8.6 Eos % (Auto) 0.0 L Baso % (Auto) 0.5 Neut # (Auto) 65817 H Lymph # (Auto) 1000 L [place] # (Auto) 1500 H Eos # (Auto) 0 Baso # (Auto) 100 Sodium 138 Potassium 3.7 Chloride 104 Carbon Dioxide 27 BUN 13 Creatinine 0.79 Estimated GFR > 60.0 BUN/Creatinine Ratio 16.5 Glucose 106 H Calcium 8.9 Magnesium 1.7 Total Bilirubin Conjugated Bilirubin Unconjugated Bilirubin AST ALT Alkaline Phosphatase Total Protein Albumin Globulin Albumin/Globulin Ratio Procalcitonin 2.53 H 05/05/21 05/05/21 05:50 12:05 WBC RBC Hgb Hct MCV MCH MCHC RDW Plt Count Neut % (Auto) Lymph % (Auto) [place] % (Auto) Eos % (Auto) Baso % (Auto) Neut # (Auto) Lymph # (Auto) [place] # (Auto) Eos # (Auto) Baso # (Auto) Sodium 138 Potassium 4.0 Chloride 103 Carbon Dioxide 26 BUN 15 Creatinine 0.74 Estimated GFR > 60.0 BUN/Creatinine Ratio 20.3 Glucose 93 Calcium 8.7 Magnesium Total Bilirubin 0.9 0.9 Conjugated Bilirubin 0.0 Unconjugated Bilirubin 0.5 AST 23 21 ALT 19 15 Alkaline Phosphatase 50 51 Total Protein 6.7 5.9 L Albumin 4.0 3.4 L Globulin 2.7 2.5 Albumin/Globulin Ratio 1.5 1.4 Procalcitonin [facility] Medical History Chronic back pain Surgical History No significant past surgical history Social History household members: spouse Tobacco & Substance Use Smoking Status: Former smoker alcohol intake: never Assessment & Plan Assessment & Plan narrative: FEVER, abdominal pain and leukocytosis. Gallbladder is normal on US with negative Calle'sm, LF's remain normal. there is RUQ edema of unknown sourse that is progressive as is his WBC. Plan: continue to rule out the gallbladder as source. HIDA not available until tomorrow. IF that remains negative for acute zehra, then repeat the CT scan of abdomen with contrast as the original one was w/o. COVID-19 COVID-19 status: Negative Time Spent With Patient Critical Care time: I spent a total of [] minutes of critical care time on this patient's care today; this time is exclusive of procedural time.
--- NOTE | 2021-05-05 17:34 | P.PN_ITS ---
Exam Vital Signs (past 8 hours): - 05/05/21 10:00 05/05/21 14:05 Temperature 100.3 F H 99.2 F Pulse Rate 92 H 88 Respiratory Rate 16 16 Blood Pressure 134/72 167/87 H Pulse Oximetry 93 97 Oxygen Delivery Method Room Air Oxygen Flow Rate 0 Narrative Exam Narrative: GEN: moderate distress from pain HEENT: PERRL, moist mucous membranes NECK: trachea midline, no JVD CV: regular rate and rhythm with no murmurs PULM: clear bilaterally, no wheezes, rhonchi, rales ABD: soft, significantly tender in the right upper quadrant, no rebound/guarding EXT: warm and well perfused with no edema NEURO: awake and alert, no focal deficits PSYCH: pleasant, cooperative Objective Labs Result Diagrams: 05/05/21 05:50 05/05/21 12:05 Labs: Laboratory Results - last 24 hr 05/05/21 05/05/21 05/05/21 05:50 05:50 05:50 WBC 17.0 H RBC 4.59 Hgb 12.7 L Hct 39.7 L MCV 86.5 MCH 27.8 MCHC 32.1 RDW 12.8 Plt Count 215 Neut % (Auto) 85.0 H Lymph % (Auto) 5.9 L [place] % (Auto) 8.6 Eos % (Auto) 0.0 L Baso % (Auto) 0.5 Neut # (Auto) 04971 H Lymph # (Auto) 1000 L [place] # (Auto) 1500 H Eos # (Auto) 0 Baso # (Auto) 100 Sodium 138 Potassium 3.7 Chloride 104 Carbon Dioxide 27 BUN 13 Creatinine 0.79 Estimated GFR > 60.0 BUN/Creatinine Ratio 16.5 Glucose 106 H Calcium 8.9 Magnesium 1.7 Total Bilirubin Conjugated Bilirubin Unconjugated Bilirubin AST ALT Alkaline Phosphatase Total Protein Albumin Globulin Albumin/Globulin Ratio Procalcitonin 2.53 H 05/05/21 05/05/21 05:50 12:05 WBC RBC Hgb Hct MCV MCH MCHC RDW Plt Count Neut % (Auto) Lymph % (Auto) [place] % (Auto) Eos % (Auto) Baso % (Auto) Neut # (Auto) Lymph # (Auto) [place] # (Auto) Eos # (Auto) Baso # (Auto) Sodium 138 Potassium 4.0 Chloride 103 Carbon Dioxide 26 BUN 15 Creatinine 0.74 Estimated GFR > 60.0 BUN/Creatinine Ratio 20.3 Glucose 93 Calcium 8.7 Magnesium Total Bilirubin 0.9 0.9 Conjugated Bilirubin 0.0 Unconjugated Bilirubin 0.5 AST 23 21 ALT 19 15 Alkaline Phosphatase 50 51 Total Protein 6.7 5.9 L Albumin 4.0 3.4 L Globulin 2.7 2.5 Albumin/Globulin Ratio 1.5 1.4 Procalcitonin [facility] Medical History Chronic back pain Surgical History No significant past surgical history Social History household members: spouse Smoking Status: Former smoker alcohol intake: never Assessment & Plan Assessment & Plan narrative: ?Mr. Alvarez is a 55M with [facility] chronic pain who presents with acute abdominal pain. 1. Abdominal pain, acute -with fever to >102, WBC rising to 17 -suspect acute cholecystitis based on findings of fever, elevated WBC, RUQ pain, and findings on CT scan -LFTs normal -abdominal ultrasound with enlarged size, pericholecystic fluid -did discuss with Dr. Watters my suspicion of infected gallbladder, she will consult -did spike fever so zosyn will be started, blood cultures ordered -surgery recommended HIDA scan, which is ordered stat, multiple discussions have been had about urgency of patient with SIRS/sepsis appearing physiology and concern for possible acute cholecystitis, but HIDA scan unable to be done for over 48 hours since presentation 2. Migraine -ordered for patient's home medications Time Spent With Patient Critical Care time: I spent a total of [] minutes of critical care time on this patient's care today; this time is exclusive of procedural time. Quality VTE Deep Vein Thrombosis/Pulmonary Embolism Present on Admission: No
--- NOTE | 2021-05-05 18:54 | PC.NURSE ---
Addendum entered by Joy Iraheta R.N. 05/05/21 18:58: NS at 150ml/hr Original Note: Pt A&OX3, experiencing migraine this shift along with R upper quadrant pain, states feels like someone is stabbing me when I inhale deeply Pt medicated with Non Formulary prn home medication for migraine with short term relief and requiring repeat dose this evening he reports with fair effect. Pt medicated every 2-3 hours with PRN dilaudid 1mg. Scheduled MOM administered for constipation. Pt with low grade temp max at 99.0 medicated with tylenol this shift x2. Pt started on liquids and advanced to general diet. He declines having an appetite but encouraged him to eat ice cream and peanut butter for HIDA scan in a.m. (more effective with fatty meal prior) Plan for pt to be NPO after midnight for procedure. IVF NS at 100 ml/hr.
[2021-05-06] VITALS (8 sets, daily range): BP systolic 121–152; BP diastolic 53–86; PULSE 76–92; RESP 16–18; TEMP 36.7–37.9; O2SAT 92–94
[2021-05-06] MEDS: SODIUM CHLORIDE 0.9% 1,000 ML 150 ML IV ×3 (01:48→21:52)
[2021-05-06] MEDS: HYDROMORPHONE 1 MG INJ IV ×7 (01:52→20:44)
[2021-05-06] MEDS: MEROPENEM 2 GM in SODIUM CHLORIDE 0.9% 100 ML 200 ML IV ×3 (03:00→18:37)
[2021-05-06 05:39] LABS: Hemoglobin 11.8 g/dL (13.5-17.5); Mean Corpuscular HGB Conc 32.7 % (30-36); Mean Corpuscular Hemoglobin 28.4 PG (26-34); Mean Corpuscular Volume 86.8 fL (80-100); Platelet Count 166 X10^3/uL (150-400); Red Blood Cell Count 4.14 X10^6/uL (4.5-5.9); Red Cell Distribution Width 12.6 % (11.6-14.8); White Blood Cell Count 14.5 X10^3/uL (4.5-11.0)
[2021-05-06 05:45] LABS: Blood Urea Nitrogen 16 mg/dL (9-20); Carbon Dioxide 32 mmol/L (22-32); Chloride 102 mmol/L (98-107); Estimated Glomerular Filt Rate > 60.0 mL/min (>60); Glucose 109 mg/dL (70-100); HEMOLYSIS < 15 (0-50); Potassium 3.8 mmol/L (3.4-5.1); Sodium 137 mmol/L (137-145)
[2021-05-06] MEDS: NAPROXEN 250 MG TABLET PO ×2 (08:05→20:32)
[2021-05-06] MEDS: ENOXAPARIN 40 MG/0.4 ML SYRINGE SUBCUT (08:05)
[2021-05-06] MEDS: METOPROLOL ER 25 MG TABLET PO (08:06)
[2021-05-06] MEDS: ACETAMINOPHEN 325 MG TABLET 650 MG PO (08:41)
--- NOTE | 2021-05-06 09:50 | P.PN_ITS ---
Subjective Subjective Date Patient Seen: 05/06/21 Time Patient Seen: 09:50 Interval history: Feels no better, has headache. Exam Vital Signs (past 8 hours): - 05/06/21 06:07 05/06/21 08:06 Temperature 99 F Pulse Rate 90 90 Respiratory Rate 18 Blood Pressure 130/67 130/67 Pulse Oximetry 93 Oxygen Delivery Method Room Air Oxygen Flow Rate 0 Narrative Exam Narrative: generalized tenderness to palpation. Not acute judging from movement of patient. Const General: ill appearing Objective Labs Result Diagrams: 05/06/21 05:25 05/06/21 05:25 Labs: Laboratory Results - last 24 hr 05/05/21 05/05/21 05/06/21 05:50 12:05 05:25 WBC 14.5 H RBC 4.14 L Hgb 11.8 L Hct 36.0 L MCV 86.8 MCH 28.4 MCHC 32.7 RDW 12.6 Plt Count 166 Sodium 138 Potassium 4.0 Chloride 103 Carbon Dioxide 26 BUN 15 Creatinine 0.74 Estimated GFR > 60.0 BUN/Creatinine Ratio 20.3 Glucose 93 Calcium 8.7 Total Bilirubin 0.9 0.9 Conjugated Bilirubin 0.0 Unconjugated Bilirubin 0.5 AST 23 21 ALT 19 15 Alkaline Phosphatase 50 51 Total Protein 6.7 5.9 L Albumin 4.0 3.4 L Globulin 2.7 2.5 Albumin/Globulin Ratio 1.5 1.4 05/06/21 05:25 WBC RBC Hgb Hct MCV MCH MCHC RDW Plt Count Sodium 137 Potassium 3.8 Chloride 102 Carbon Dioxide 32 BUN 16 Creatinine 0.84 Estimated GFR > 60.0 BUN/Creatinine Ratio 19.0 Glucose 109 H Calcium 8.0 L Total Bilirubin Conjugated Bilirubin Unconjugated Bilirubin AST ALT Alkaline Phosphatase Total Protein Albumin Globulin Albumin/Globulin Ratio [facility] Medical History Chronic back pain Surgical History No significant past surgical history Social History household members: spouse Smoking Status: Former smoker alcohol intake: never Assessment & Plan Assessment & Plan narrative: HIDA today. Decreased WBC and resolved fever Source is still suspect for GB. Remains unwell but not critical Plan: if HIDA shows no acute zehra (non filling). Then repeat abdominal/pelvic CT with constrast. Time Spent With Patient Time with patient: 30 to 49 minutes with 50% spent counseling/coordinating care Critical Care time: I spent a total of [] minutes of critical care time on this patient's care today; this time is exclusive of procedural time. Quality VTE Deep Vein Thrombosis/Pulmonary Embolism Present on Admission: No
--- NOTE | 2021-05-06 13:07 | PM.PN.1 ---
Subjective Subjective Date Patient Seen: 05/06/21 Time Patient Seen: 13:07 Interval history: Complains of headache this morning, no improvement in nausea or abdominal pain. Pending HIDA scan today. Exam Vital Signs (past 8 hours): - 05/06/21 06:07 05/06/21 08:06 05/06/21 08:10 Temperature 99 F 98.1 F Pulse Rate 90 90 91 H Respiratory Rate 18 16 Blood Pressure 130/67 130/67 152/81 H Pulse Oximetry 93 94 05/06/21 12:19 05/06/21 12:20 Temperature 99.2 F Pulse Rate 76 76 Respiratory Rate 16 Blood Pressure 138/70 138/70 Pulse Oximetry 94 Oxygen Delivery Method Room Air Oxygen Flow Rate 0 Narrative Exam Narrative: GEN: moderate distress from pain, acutely ill appearing. HEENT: PERRL, moist mucous membranes NECK: trachea midline, no JVD CV: regular rate and rhythm with no murmurs PULM: clear bilaterally, no wheezes, rhonchi, rales ABD: soft, significantly tender in the right upper quadrant but also to a lesser degree RLQ as well, no rebound/guarding EXT: warm and well perfused with no edema NEURO: awake and alert, no focal deficits PSYCH: pleasant, cooperative Objective Labs Result Diagrams: 05/06/21 05:25 05/06/21 05:25 Labs: Laboratory Results - last 24 hr 05/05/21 05/06/21 05/06/21 12:05 05:25 05:25 WBC 14.5 H RBC 4.14 L Hgb 11.8 L Hct 36.0 L MCV 86.8 MCH 28.4 MCHC 32.7 RDW 12.6 Plt Count 166 Sodium 138 137 Potassium 4.0 3.8 Chloride 103 102 Carbon Dioxide 26 32 BUN 15 16 Creatinine 0.74 0.84 Estimated GFR > 60.0 > 60.0 BUN/Creatinine Ratio 20.3 19.0 Glucose 93 109 H Calcium 8.7 8.0 L Total Bilirubin 0.9 AST 21 ALT 15 Alkaline Phosphatase 51 Total Protein 5.9 L Albumin 3.4 L Globulin 2.5 Albumin/Globulin Ratio 1.4 [facility] Medical History Chronic back pain Surgical History No significant past surgical history Social History household members: spouse Smoking Status: Former smoker alcohol intake: never Assessment & Plan Assessment & Plan narrative: Mr. Alvarez is a 55M with H chronic pain who presents with acute abdominal pain. 1. Abdominal pain, acute -with fever to >102, WBC rising to 17 -suspect acute cholecystitis based on findings of fever, elevated WBC, RUQ pain, and findings on CT scan -LFTs normal -abdominal ultrasound with enlarged size, pericholecystic fluid -did spike fever so zosyn will be started, blood cultures ordered -surgery recommended HIDA scan, planned for today. Pending results for further management. If negative repeat CT recommended by surgery. 2. Migraine -ordered for patient's home medications Time Spent With Patient Critical Care time: I spent a total of [] minutes of critical care time on this patient's care today; this time is exclusive of procedural time. Quality VTE Deep Vein Thrombosis/Pulmonary Embolism Present on Admission: No
--- NOTE | 2021-05-06 13:57 | CM.DANOTE ---
Patient is a 55 yo male who was admitted on 05/04/21 for Abd Pain. Pt has WEEKS for insurance and his PCP is Ewelina Aleman. EMR was reviewed. Per MD, pt labs/scans suspicious for acute cholecystitis and per Surgeon appears to be a stone in the neck. Pt has been NPO with supportive spouse bedside. Surgeon set up HIDA scan for today to confirm cholecystitis and then likely medical intervention. Pt has been independent in room and no concerns at this time. Pt lives in [place] with his spouse and is active and independent at baseline and drives. No bedside assessment completed at this time due to triage needs and awaiting HIDA. Plan: SW to follow for possible surgical intervention and then eventual ambulation and advancing pt's diet towards determining any d/c planning needs. CINDI Marquez
--- NOTE | 2021-05-06 15:49 | PC.NURSE ---
Addendum entered by Lisa Gill R.N. 05/06/21 17:52: C/O migraine/headache, administered Rizatriptan as ordered with adequate relief. Patient prefers room quiet and dark. Addendum entered by Lisa Gill R.N. 05/06/21 16:25: Off floor to CT scan at 1624 Original Note: 1530: Patient returned to room 212 from HIDA scan, awake and alert. Up Out of chair to bed, requiring 1P max assist. Medicated for pain on arrival, IVF continued as ordered. Awaiting for results for further plan of care, including diet order. No nausea or vomiting. Spouse at bedside providing supportive care. Calls appropriately for staff assist.
--- NOTE | 2021-05-06 16:17 | DI.CT.S_ITS ---
PROCEDURE: CT ABDOMEN PELVIS W CON INDICATIONS: abdominal pain TECHNIQUE: After the administration of IV contrast, axial sections were acquired from the lung bases to the pubic symphysis. Coronal and sagittal reformats were performed. For radiation dose reduction, the following was used: automated exposure control, adjustment of mA and/or kV according to patient size. COMPARISON: [facility], US, US ABDOMEN LIMITED, 05/04/2021, 10:19. [facility], NM, NM HIDA NO EJECTION FRACTION, 05/06/2021, 12:32. [facility], US, US ABDOMEN LIMITED, 05/05/2021, 9:07. [facility], CT, CT KIDNEY URETER BLADDER (KUB), 05/04/2021, 12:02. FINDINGS: Image quality: Excellent. Lung bases: Trace right pleural effusion, new. There are bibasilar atelectasis. Heart: No significant findings. ABDOMEN: Liver: Normal in size and enhancement. Gallbladder: Distended gallbladder with gallbladder wall thickening (up to 8.4 mm) and pericholecystic stranding consistent with acute cholecystitis. No radiopaque gallstones. A 1.5 cm round density near the gallbladder neck could represent a gallstone. Biliary ducts: Unremarkable. Pancreas: Unremarkable. Spleen: Unremarkable. Adrenal Glands: Unremarkable. Kidneys and Ureters: Unremarkable. Stomach and Bowel: Stomach is mildly distended. There is mild thickening of duodenum, most likely due to spread inflammation from adjacent acute cholecystitis. Small bowel loops and colon are normal in caliber. There is a moderate amount of stool in colon. Peritoneum: There is a trace amount of free fluid around the liver and in the left pericolic gutter. No free air. Ventral Wall: No hernia. Abdominal Nodes: No retroperitoneal or mesenteric adenopathy by size criteria. Vessels: Aorta and inferior vena cava are normal in size. PELVIS: Pelvic Organs: Unremarkable. Bladder: Unremarkable. Pelvic Nodes: No enlarged lymph nodes. Miscellaneous: No inguinal hernias are seen. Bones: Mild degenerative changes in lumbar spine. IMPRESSION: 1. The CT findings are consistent with acute cholecystitis. Possible gallstone in the gallbladder neck. 2. Mild thickening of duodenum, most likely secondary to direct spread of inflammation/infection from adjacent acute cholecystitis. 3. Trace right pleural effusion, which is new. There are bibasilar atelectasis. The result was discussed with Dr. Watters. Dictated by: Karie Cartwright M.D. on 05/06/2021 at 16:57 Approved by: Karie Cartwright M.D. on 05/06/2021 at 17:20
[2021-05-06] MEDS: ONDANSETRON 4 MG/2 ML INJ IV (18:45)
[2021-05-07] VITALS (21 sets, daily range): BP systolic 120–154; BP diastolic 58–82; PULSE 60–81; RESP 12–18; TEMP 36.3–38.4; O2SAT 94–100; BMI 34.9
--- NOTE | 2021-05-07 | PATH_ITS ---
[facility] Accession Number: [id number] . 01 Material submitted: . gallbladder - GALLBLADDER . 02 Diagnosis: Gallbladder, Cholecystectomy: Cholelithiasis with acute cholecystitis. No evidence of neoplasm. MRV 05/12/2021 1054 Local . 02 Electronically signed: . Rogelio Shelton MD, PhD, Pathologist NPI- [id number] . 01 Gross description: . The specimen is received in formalin, labeled gallbladder, and consists of an 11.0 x 5.5 x 5.0 cm previously disrupted gallbladder with a 0.3 cm in diameter cystic duct. The serosa is katz-pink, focally hemorrhagic with adherent purulent exudate. Opening reveals minimal green viscous bile and a 3.0 x 2.2 x 2.0 cm, katz-green, bosselated choleliths. The mucosa is katz-green and velvety to ragged with adherent green exudate. The wall thickness measures 0.5 cm. Direct Casting Operator sections are submitted, to include the en face cystic duct margin (blue) in cassettes A1-A2. ([id number]) /[facility] 05/08/2021 1730 Local . 02 Pathologist provided ICD-10: K81.0, K80.60 . 02 CPT . 115633 Performed at: 01 [facility] [address], [place], [place] [id number] MD Sumeet Tam MD Phone: [phone] Performed at: 02 [facility] [address] [place], [place] [id number] MD Luciana Marrufo MD Phone: [phone]
[2021-05-07] MEDS: HYDROMORPHONE 1 MG INJ IV ×5 (00:26→21:23)
[2021-05-07] MEDS: ACETAMINOPHEN 325 MG TABLET 650 MG PO ×2 (00:27→21:23)
[2021-05-07] MEDS: PANTOPRAZOLE 40 MG VIAL IV (00:35)
[2021-05-07] MEDS: MEROPENEM 2 GM in SODIUM CHLORIDE 0.9% 100 ML 200 ML IV (03:13)
[2021-05-07] MEDS: SODIUM CHLORIDE 0.9% 1,000 ML 150 ML IV ×2 (05:09→12:53)
[2021-05-07] MEDS: METOPROLOL ER 25 MG TABLET PO (08:49)
--- NOTE | 2021-05-07 10:58 | PC.NURSE ---
Addendum entered by Shauna Dee R.N. 05/07/21 18:26: Patient back from surgery around 1730. His incision sites are all cdi, patient sleepy from pain meds given down in pacu. He is on NS at 150cc/hr. Resting comfortably in room and tolerating some ice chips. Addendum entered by Shauna Dee R.N. 05/07/21 14:24: Patient taken down to surgery at 1345, in room. Original Note: Patient complained of 7/10 pain to his abdomen, and headache of 4/10. Given iv dilaudid and helpful. Bowel tones positive, patient is resting now and will go to surgery at 1415.
[2021-05-07] MEDS: MEROPENEM 1 GM in SODIUM CHLORIDE 0.9% 100 ML 200 ML IV ×2 (11:46→19:43)
--- NOTE | 2021-05-07 12:05 | P.PN_ITS ---
Subjective Subjective Date Patient Seen: 05/07/21 Time Patient Seen: 12:05 Interval history: no improvement in nausea or abdominal pain, planned for OR today with general surgery. Exam Vital Signs (past 8 hours): - 05/07/21 05:00 05/07/21 08:55 Temperature 97.9 F 99.0 F Pulse Rate 74 67 Respiratory Rate 18 16 Blood Pressure 130/75 141/76 H Pulse Oximetry 95 94 Oxygen Delivery Method Room Air Oxygen Flow Rate 0 Narrative Exam Narrative: ?GEN: moderate distress from pain, acutely ill appearing. HEENT: PERRL, moist mucous membranes NECK: trachea midline, no JVD CV: regular rate and rhythm with no murmurs PULM: clear bilaterally, no wheezes, rhonchi, rales ABD: soft, significantly tender in the right upper quadrant but also to a lesser degree RLQ as well, no rebound/guarding EXT: warm and well perfused with no edema NEURO: awake and alert, no focal deficits PSYCH: pleasant, cooperative Objective Labs Result Diagrams: 05/06/21 05:25 05/06/21 05:25 [facility] Medical History Chronic back pain Surgical History No significant past surgical history Social History household members: spouse Smoking Status: Former smoker alcohol intake: never Assessment & Plan Assessment & Plan narrative: Mr. Alvarez is a 55M with [facility] chronic pain who presents with acute abdominal pain. 1. Acute cholecystitis -with fever to >102, WBC stable -suspect acute cholecystitis based on findings of fever, elevated WBC, RUQ pain, and findings on CT scan -LFTs normal -abdominal ultrasound with enlarged size, pericholecystic fluid -did spike fever so zosyn will be started, blood cultures ordered -surgery recommended HIDA scan, no filling of gallbladder. Repeat CT scan with probable impacted stone, now with PCCF and wall thickening. Planned for OR today for cholecystectomy with general surgery. 2. Migraine -ordered for patient's home medications Time Spent With Patient Critical Care time: I spent a total of [] minutes of critical care time on this patient's care today; this time is exclusive of procedural time. Quality VTE Deep Vein Thrombosis/Pulmonary Embolism Present on Admission: No
--- NOTE | 2021-05-07 12:50 | PM.PREOP ---
Pre-operative Note COVID-19 COVID-19 status: Negative Interval Note History & Physical reviewed/Exam performed by Physician: Yes Changes to H&P: No
[2021-05-07] MEDS: LACTATED RINGERS 1,000 ML 42 ML IV (14:06)
[2021-05-07] MEDS: BUPIVACAINE 0.5% (PF) 30 ML, EPINEPHrine 0.15 MG INJ (14:59)
--- NOTE | 2021-05-07 15:01 | SUR.OPER ---
Supine on padded OR bed, head on pillow, safety belt at thigh, left arm padded and tucked at side. Right arm secured on padded arm board <90 degrees abduction. Legs uncrossed. Padded footboard in place. Tape over blanket to secure lower legs.
--- NOTE | 2021-05-07 16:00 | PM.OP.1 ---
Operative Date/Time/Diagnoses Date of procedure: 05/07/21 Time of procedure: 16:00 Pre-op diagnosis: Acute cholecystitis Post-op diagnosis: same Procedure & Clinicians Procedure: Laparoscopic cholecystectomy Same procedure as scheduled: Yes Indications: Chronic and subacute right upper quadrant pain, abdominal pain. A less than conclusive workup of ultrasound CT and labs along with HIDA. Surgeon: María Elena Watters Click Yes if Unassisted: Yes Anesthesia Type: General Operative Notes Findings: Gangrenous cholecystitis, surrounding adhesions from previous episodes Closure Type: primary Specimen(s): other (Gallbladder, cultures) Estimated Blood Loss (mL): 100 Blood products transfused: none Procedure in detail: Preop diagnosis: Acute cholecystitis Postop diagnosis: Gangrenous cholecystitis Operative procedure: Laparoscopic cholecystectomy Surgeon: Ángela Watters MD Anesthetic: General with ET tube intubation along with local Findings: Gangrenous gallbladder. Significant adhesions in the right upper quadrant from previous inflammatory events Procedure: Patient placed in a supine position. Prepped and draped in a sterile fashion exposes abdomen. Infraumbilical port site was placed using an open technique a 12 mm port. Insufflation began all other ports were placed under direct vision. Other ports included a 10 mm epigastric, and 2 5 mm right lateral ports. Gallbladder was decompressed after unroofing it from omentum. Gallbladder is grasped pushed cephalad for exposure. Cystic duct was identified clipped once distally twice proximally transected. Cystic artery was identified clipped once distally twice proximally and transected. Gallbladder was removed from the fossa with electrocautery and blunt dissection. We had good hemostasis at the end of the case however SurgiSeal was placed into the fossa bed. Abdomen was irrigated to a clear return. We then removed all ports and began closure. Closure consisted of interrupted 0 Vicryl for fascial closure of the infraumbilical port site. Skin was closed a running 4-0 Vicryl. Steri-Strips and sterile dressings were placed. Patient was awakened extubated and taken to recovery room in stable condition. Needle, instrument, sponge counts were correct. Blood loss: 100 mL Specimen: Gallbladder Cultures of bile
[2021-05-07] MEDS: fentaNYL 100 MCG/2 ML INJ IV ×2 (16:16→16:28)
[2021-05-07] MEDS: HYDROMORPHONE 2 MG INJ IV ×4 (16:35→17:14)
[2021-05-07] MEDS: OXYCODONE IR 5 MG TABLET PO (17:06)
[2021-05-07] MEDS: HYDROCODONE/ACET 5/325 TABLET 2 TAB PO (19:43)
[2021-05-08] MEDS: HYDROMORPHONE 1 MG INJ IV ×3 (01:12→08:16)
[2021-05-08] MEDS: SODIUM CHLORIDE 0.9% 1,000 ML 150 ML IV (01:12)
[2021-05-08 01:16] VITALS: BP 143/62; PULSE 61; RESP 19; TEMP 36.9; O2SAT 97
[2021-05-08] MEDS: MEROPENEM 1 GM in SODIUM CHLORIDE 0.9% 100 ML 200 ML IV ×2 (03:39→10:39)
[2021-05-08 05:00] VITALS: BP 136/66; PULSE 69; RESP 19; TEMP 36.8; O2SAT 95
[2021-05-08] MEDS: ONDANSETRON 4 MG/2 ML INJ IV (05:02)
[2021-05-08 06:31] LABS: Add Manual Diff / Slide Review NO; Basophils Absolute Auto 0 /uL (0-100); Basophils Percent Auto 0.1 % (0-2); Eosinophils Absolute Auto 0 /uL (0-450); Hemoglobin 11.1 g/dL (13.5-17.5); Lymphocytes Absolute Auto 800 /uL (1100-4500); Lymphocytes Percent Auto 7.8 % (25-40); Mean Corpuscular HGB Conc 32.8 % (30-36); Mean Corpuscular Hemoglobin 28.4 PG (26-34); Mean Corpuscular Volume 86.8 fL (80-100); Monocytes Absolute Auto 600 /uL (0-900); Monocytes Percent Auto 6.4 % (3-14); Neutrophils Absolute Auto 8300 /uL (1500-7000); Neutrophils Percent Auto 85.7 % (50-75); Platelet Count 244 X10^3/uL (150-400); Red Blood Cell Count 3.91 X10^6/uL (4.5-5.9); Red Cell Distribution Width 12.5 % (11.6-14.8); White Blood Cell Count 9.7 X10^3/uL (4.5-11.0)
[2021-05-08 06:42] LABS: Alanine Aminotransferase 37 IU/L (<50); Albumin 3.1 g/dL (3.5-5.0); Albumin Globulin Ratio 1.1 (1.0-2.8); Alkaline Phosphatase 58 U/L (38-126); Aspartate Aminotransferase 45 IU/L (17-59); Bilirubin Total 0.4 mg/dL (0.2-1.3); Blood Urea Nitrogen 16 mg/dL (9-20); Calcium 7.8 mg/dL (8.4-10.2); Carbon Dioxide 27 mmol/L (22-32); Chloride 103 mmol/L (98-107); Estimated Glomerular Filt Rate > 60.0 mL/min (>60); Globulin 2.8 g/dL (1.7-4.1); Glucose 125 mg/dL (70-100); HEMOLYSIS < 15 (0-50); Potassium 3.9 mmol/L (3.4-5.1); Sodium 138 mmol/L (137-145); Total Protein 5.9 g/dL (6.3-8.2)
[2021-05-08] MEDS: NAPROXEN 250 MG TABLET PO ×2 (08:16→21:08)
[2021-05-08] MEDS: ENOXAPARIN 40 MG/0.4 ML SYRINGE SUBCUT (08:16)
[2021-05-08] MEDS: METOPROLOL ER 25 MG TABLET PO (08:16)
[2021-05-08 08:20] VITALS: BP 150/84; PULSE 66; RESP 16; TEMP 37.1; O2SAT 95
--- NOTE | 2021-05-08 08:58 | PC.NURSE ---
Addendum entered by Shauna Dee R.N. 05/08/21 13:47: Patient doing well with oral dilaudid 4mg. He is up with one person assist using the bathroom now. Addendum entered by Shauna Dee R.N. 05/08/21 09:02: Corrective Note: Patient has 4 incisions to abdomen and not 3. Error when writing. Original Note: Patient complained of pain, given 1mg of iv dilaudid and helpful for about 2 hours. Patient has 4 small incisions to his abdomen that are cdi and bowel tones are active x4. Got orders for po dilaudid, and protonix as patient complains of indigestion. He is tolerating his breakfast and denies nausea. in room.
[2021-05-08] MEDS: PANTOPRAZOLE DR 40 MG TABLET PO (10:39)
[2021-05-08] MEDS: HYDROMORPHONE 4 MG TABLET PO ×3 (11:19→19:55)
[2021-05-08 11:39] VITALS: PULSE 115
[2021-05-08 14:00] VITALS: BP 119/59; PULSE 74; RESP 16; TEMP 37.1; O2SAT 95
--- NOTE | 2021-05-08 14:57 | PM.PN.1 ---
Subjective Subjective Date Patient Seen: 05/08/21 Time Patient Seen: 14:57 Interval history: Somewhat nauseous, abdominal pain improved but very sore. Tolerating a diet but not eating much. Passing gas, no bowel movement. Exam Vital Signs (past 8 hours): - 05/08/21 08:20 05/08/21 11:39 05/08/21 14:00 Temperature 98.7 F 98.7 F Pulse Rate 66 115 H 74 Respiratory Rate 16 16 Blood Pressure 150/84 H 119/59 L Pulse Oximetry 95 95 Oxygen Delivery Method Room Air Oxygen Flow Rate 0 Narrative Exam Narrative: ?GEN: WDWN, no acute distress but mildly ill appearing still. HEENT: PERRL, moist mucous membranes NECK: trachea midline, no JVD CV: regular rate and rhythm with no murmurs PULM: clear bilaterally, no wheezes, rhonchi, rales ABD: soft, appropriately tender. Incisions c/d/i. EXT: warm and well perfused with no edema NEURO: awake and alert, no focal deficits PSYCH: pleasant, cooperative Objective Labs Result Diagrams: 05/08/21 05:54 05/08/21 05:54 Labs: Laboratory Results - last 24 hr 05/08/21 05/08/21 05:54 05:54 WBC 9.7 RBC 3.91 L Hgb 11.1 L Hct 34.0 L MCV 86.8 MCH 28.4 MCHC 32.8 RDW 12.5 Plt Count 244 Neut % (Auto) 85.7 H Lymph % (Auto) 7.8 L [place] % (Auto) 6.4 Eos % (Auto) 0.0 L Baso % (Auto) 0.1 Neut # (Auto) 8300 H Lymph # (Auto) 800 L [place] # (Auto) 600 Eos # (Auto) 0 Baso # (Auto) 0 Sodium 138 Potassium 3.9 Chloride 103 Carbon Dioxide 27 BUN 16 Creatinine 0.64 L Estimated GFR > 60.0 BUN/Creatinine Ratio 25.0 H Glucose 125 H Calcium 7.8 L Total Bilirubin 0.4 AST 45 ALT 37 Alkaline Phosphatase 58 Total Protein 5.9 L Albumin 3.1 L Globulin 2.8 Albumin/Globulin Ratio 1.1 [facility] Medical History Chronic back pain Surgical History No significant past surgical history Social History household members: spouse Smoking Status: Former smoker alcohol intake: never Assessment & Plan Assessment & Plan narrative: Mr. Alvarez is a 55M with [facility] chronic pain who presents with acute abdominal pain. 1. Acute cholecystitis -now s/p lap cholecystectomy on 05/07/21 after much imaging. -patient was on meropenem. Can narrow today to augmentin given source control, continue antiboitics until more symptomatically improved given gangrenous gallbladder noted during surgery. 2. Migraine -ordered for patient's home medications Time Spent With Patient Critical Care time: I spent a total of [] minutes of critical care time on this patient's care today; this time is exclusive of procedural time. Quality VTE Deep Vein Thrombosis/Pulmonary Embolism Present on Admission: No
--- NOTE | 2021-05-08 15:36 | P.PN_ITS ---
Subjective Subjective Date Patient Seen: 05/08/21 Time Patient Seen: 15:36 Interval history: Feels better. ORDOÑEZ is gone Exam Vital Signs (past 8 hours): - 05/08/21 08:20 05/08/21 11:39 05/08/21 14:00 Temperature 98.7 F 98.7 F Pulse Rate 66 115 H 74 Respiratory Rate 16 16 Blood Pressure 150/84 H 119/59 L Pulse Oximetry 95 95 Oxygen Delivery Method Room Air Oxygen Flow Rate 0 Narrative Exam Narrative: Abd is soft with dressing intact Objective Labs Result Diagrams: 05/08/21 05:54 05/08/21 05:54 Labs: Laboratory Results - last 24 hr 05/08/21 05/08/21 05:54 05:54 WBC 9.7 RBC 3.91 L Hgb 11.1 L Hct 34.0 L MCV 86.8 MCH 28.4 MCHC 32.8 RDW 12.5 Plt Count 244 Neut % (Auto) 85.7 H Lymph % (Auto) 7.8 L [place] % (Auto) 6.4 Eos % (Auto) 0.0 L Baso % (Auto) 0.1 Neut # (Auto) 8300 H Lymph # (Auto) 800 L [place] # (Auto) 600 Eos # (Auto) 0 Baso # (Auto) 0 Sodium 138 Potassium 3.9 Chloride 103 Carbon Dioxide 27 BUN 16 Creatinine 0.64 L Estimated GFR > 60.0 BUN/Creatinine Ratio 25.0 H Glucose 125 H Calcium 7.8 L Total Bilirubin 0.4 AST 45 ALT 37 Alkaline Phosphatase 58 Total Protein 5.9 L Albumin 3.1 L Globulin 2.8 Albumin/Globulin Ratio 1.1 [facility] Medical History Chronic back pain Surgical History No significant past surgical history Social History household members: spouse Smoking Status: Former smoker alcohol intake: never Assessment & Plan Post-op Postoperative Procedures: Procedures Operation Date: 05/07/21 14:15 Actual Procedure Side Surgeon p Laparoscopic Cholecystectomy María Elena Watters MD Postoperative day: 1 Postoperative status: doing well Postoperative status narrative: WBC normal. Loss of IV access and will switch to po antibiotics. Increase activity Postoperative plan narrative: Possible discharge home tomorrow with 5 days of po antibiotics. Quality VTE Deep Vein Thrombosis/Pulmonary Embolism Present on Admission: No
[2021-05-08] MEDS: polyethylene glycoL 3350 17 GM POWD.PACK PO (15:50)
[2021-05-08 19:30] VITALS: BP 142/73; PULSE 75; RESP 18; TEMP 36.9; O2SAT 96
[2021-05-08] MEDS: AMOXICILLIN/CLAV 875/125 MG 1 TAB PO (21:08)
[2021-05-09] MEDS: HYDROMORPHONE 4 MG TABLET PO ×4 (00:05→12:32)
[2021-05-09 00:30] VITALS: BP 158/70; PULSE 71; RESP 20; TEMP 37.6; O2SAT 96
[2021-05-09 04:00] VITALS: BP 148/52; PULSE 90; RESP 18; TEMP 36.8; O2SAT 98
[2021-05-09] MEDS: PANTOPRAZOLE DR 40 MG TABLET PO (06:05)
[2021-05-09 06:39] LABS: Add Manual Diff / Slide Review NO; Basophils Absolute Auto 0 /uL (0-100); Basophils Percent Auto 0.1 % (0-2); Eosinophils Absolute Auto 0 /uL (0-450); Eosinophils Percent Auto 0.1 % (2-4); Hematocrit 35.3 % (41-53); Hemoglobin 11.6 g/dL (13.5-17.5); Lymphocytes Absolute Auto 1700 /uL (1100-4500); Lymphocytes Percent Auto 15.8 % (25-40); Mean Corpuscular Hemoglobin 28.5 PG (26-34); Mean Corpuscular Volume 86.3 fL (80-100); Monocytes Absolute Auto 1200 /uL (0-900); Neutrophils Absolute Auto 7900 /uL (1500-7000); Platelet Count 331 X10^3/uL (150-400); Red Blood Cell Count 4.08 X10^6/uL (4.5-5.9); Red Cell Distribution Width 12.8 % (11.6-14.8); White Blood Cell Count 10.9 X10^3/uL (4.5-11.0)
[2021-05-09 06:53] LABS: Alanine Aminotransferase 54 IU/L (<50); Albumin 3.1 g/dL (3.5-5.0); Albumin Globulin Ratio 1.1 (1.0-2.8); Alkaline Phosphatase 60 U/L (38-126); Aspartate Aminotransferase 64 IU/L (17-59); BUN Creatinine Ratio 23.2 (6-22); Bilirubin Total 0.5 mg/dL (0.2-1.3); Blood Urea Nitrogen 16 mg/dL (9-20); Calcium 7.9 mg/dL (8.4-10.2); Carbon Dioxide 32 mmol/L (22-32); Chloride 100 mmol/L (98-107); Estimated Glomerular Filt Rate > 60.0 mL/min (>60); Globulin 2.8 g/dL (1.7-4.1); Glucose 112 mg/dL (70-100); HEMOLYSIS < 15 (0-50); Potassium 3.5 mmol/L (3.4-5.1); Sodium 138 mmol/L (137-145); Total Protein 5.9 g/dL (6.3-8.2)
[2021-05-09 07:55] VITALS: BP 147/68; PULSE 66; RESP 19; TEMP 36.9; O2SAT 95
--- NOTE | 2021-05-09 08:38 | PM.EVENT ---
Event Note Date Patient Seen: 05/09/21 Event Note: To whom it may concern: Nik had recent surgery and requires 2 weeks off work with a total of 4 weeks from surgery(05/07/21) of lift restrictions to 15 lbs. Sincerely; Ángela Watters MD
[2021-05-09 08:43] VITALS: BP 147/68; PULSE 72
[2021-05-09] MEDS: AMOXICILLIN/CLAV 875/125 MG 1 TAB PO (08:43)
[2021-05-09] MEDS: NAPROXEN 250 MG TABLET PO (08:43)
[2021-05-09] MEDS: METOPROLOL ER 25 MG TABLET PO (08:43)
[2021-05-09] MEDS: ENOXAPARIN 40 MG/0.4 ML SYRINGE SUBCUT (08:45)
--- NOTE | 2021-05-09 12:36 | P.DS_ITS ---
History of Present Illness History of Present Illness Date Patient Seen: 05/09/21 Time Patient Seen: 12:36 Chief complaint: Extreme abd pain x2 days, all over Narrative: Just ambulated and is weak. O/w ready to go home Discharge Providers Provider Date of admission: 05/04/21 13:18 Discharge Date: 05/09/21 Primary care physician: Ewelina Aleman PA-C Discharge provider: María Elena Watters MD Exam Vital Signs (past 8 hours): - 05/09/21 07:55 05/09/21 08:43 Temperature 98.4 F Pulse Rate 66 72 Respiratory Rate 19 Blood Pressure 147/68 H 147/68 H Pulse Oximetry 95 Oxygen Delivery Method Room Air Oxygen Flow Rate 0 Narrative Exam Narrative: wounds well approximated, no infection. abdomen soft with incision tenderness. Objective Labs Result Diagrams: 05/09/21 05:49 05/09/21 05:49 Labs: Laboratory Results - last 24 hr 05/09/21 05/09/21 05:49 05:49 WBC 10.9 RBC 4.08 L Hgb 11.6 L Hct 35.3 L MCV 86.3 MCH 28.5 MCHC 33.0 RDW 12.8 Plt Count 331 Neut % (Auto) 73.0 Lymph % (Auto) 15.8 L [place] % (Auto) 11.0 Eos % (Auto) 0.1 L Baso % (Auto) 0.1 Neut # (Auto) 7900 H Lymph # (Auto) 1700 [place] # (Auto) 1200 H Eos # (Auto) 0 Baso # (Auto) 0 Sodium 138 Potassium 3.5 Chloride 100 Carbon Dioxide 32 BUN 16 Creatinine 0.69 Estimated GFR > 60.0 BUN/Creatinine Ratio 23.2 H Glucose 112 H Calcium 7.9 L Total Bilirubin 0.5 AST 64 H ALT 54 H Alkaline Phosphatase 60 Total Protein 5.9 L Albumin 3.1 L Globulin 2.8 Albumin/Globulin Ratio 1.1 [facility] Medical History Chronic back pain Surgical History No significant past surgical history Social History household members: spouse Smoking Status: Former smoker alcohol intake: never Discharge Assessment & Plan Assessment and Plan Assessment: s/p lap zehra for acute cholecystitis and sepsis Plan of Treatment: follow up 1-2 weeks increase activity daily no heavy lifting >15 lbs for 4 weeks Discharge Plan Discharge Plan Patient Disposition: Home Provider Discharge Comment: no heavy lifting for 4 weeks Discharge orders & Medications Prescriptions: New naproxen 250 mg Tablet 250 mg PO BID Qty: 30 RF: 0 pantoprazole 40 mg Tablet,Delayed Release (Dr/Ec) 40 mg PO 0700 Qty: 30 RF: 2 hydromorphone 4 mg Tablet 4 mg PO Q4HR PRN (Reason: Pain, Severe (7-10)) Qty: 30 RF: 0 amoxicillin-pot clavulanate [Augmentin] 875-125 mg Tablet 1 tab PO BID Qty: 10 RF: 0 Continued morphine 15 mg Tablet Extended Release 15 mg PO Q12H RF: 0 rizatriptan 10 mg Tablet 10 mg PO DAILY RF: 0 piroxicam 10 mg Capsule 10 mg PO DAILY RF: 0 metoprolol succinate 25 mg Tablet Extended Release 24 Hr 25 mg PO DAILY RF: 0 oxycodone 10 mg Tablet 10 mg PO BID RF: 0 Medication counseling provided by Pharmacist: Yes Pharmacist Comment: Patient counseled to hold piroxicam while on naproxen as they are both NSAIDs (duplicate therapy). Also discussed not taking morphine and oxycodone if hydromorphone is adequately covering his pain. Recommended taking a stool softener (docusate) while on more narcotics post-operatively. Patient verbalized his understanding. Follow up/Referrals: María Elena Watters MD [Physician] - Ewelina Aleman PA-C [Primary Care Provider] - Diet/Activity/Treatments Diet: Diet as Tolerated Discharge Data Primary Care Provider: Ewelina Aleman Attending Provider: María Elena Watters Quality VTE Deep Vein Thrombosis/Pulmonary Embolism Present on Admission: No
--- NOTE | 2021-05-09 13:28 | PC.NURSE ---
Discharge Note Patient A&O, VSS, RA, no complaints of pain/discomfort. Discharge packet reviewed with patient. All questions/concerns addressed. No PIV access. Patient reminded to lemon picker medication at preferred pharmacy. All belongings packed by patient's . Discharge packet given to patient's . Patient taken down via wheelchair to POV.
== END 2021-05-09 13:20 | disposition home or self-care (01) ==
LOC: ED 09:34 → AC 13:19
PROVIDERS: Internal Medicine; Admitting Provider Internal Medicine; Emergency Provider Emergency Medicine; Family Provider Physician Assistant; PCP Physician Assistant; Referring Provider Emergency Medicine; Visit Provider Surgery
PROC: 0FT44ZZ Resection of Gallbladder, Percutaneous Endoscopic Approach (ICD-10-PCS; CPT 47562; principal; 2021-05-07 14:15)
DX: K81.0 Acute cholecystitis (principal); K82.A1 Gangrene of gallbladder in cholecystitis; M54.9 Dorsalgia, unspecified; G89.29 Other chronic pain; I10 Essential (primary) hypertension; Z20.822 Contact with and (suspected) exposure to COVID-19; K66.0 Peritoneal adhesions (postprocedural) (postinfection); G43.909 Migraine, unspecified, not intractable, without status migrainosus
CPT/HCPCS: 47562; 36415; 74176; 74177; 76705; 78226; 80048; 80053; 80076; 81001; 83690; 83735; 84145; 85025; 85027; 87040; 87070; 87075; 87077; 87186; 87205; 87635; 93005; 93010; 96361; 96365; 96366; 96375; 99218; 99285; A9537; C9803; G0378; C9113; J0171; J0330; J1100; J1170; J1650; J1885; J2185; J2405; J2704; J3010; J3475; Q9967